=== PATIENT | female | born 2000 | race American Indian/Alaskan Native ===

== ENCOUNTER 2020-11-11 13:38 | Inpatient (IN) | payer OTHER ==
[2020-11-11] MEDS ORDERED: SIMETHICONE 80 MG CHEW TAB PO PRN (13:51)
[2020-11-11] MEDS ORDERED: SODIUM CHLORIDE NASAL SPRAY 44ML NS PRN (13:51)
[2020-11-11] MEDS ORDERED: MAGNESIUM HYDROXIDE (MOM) ORAL LIQD UDC PO PRN (13:51)
[2020-11-11] MEDS ORDERED: ACETAMINOPHEN 325 MG TAB PO PRN (13:51)
[2020-11-11] MEDS ORDERED: diphenhydrAMINE 25 MG CAP PO PRN (13:51)
[2020-11-11] MEDS ORDERED: DOCUSATE SODIUM 100 MG CAP PO PRN (13:51)
[2020-11-11] MEDS ORDERED: SENNOSIDES/DOCUSATE SODIUM 8.6/50 MG TAB PO PRN (13:51)
[2020-11-11] MEDS ORDERED: ALUM-MAG HYDROXIDE-SIMETHICONE 200-200-20MG/5ML ORAL LIQD 30 ML PO PRN (13:51)
--- NOTE | 2020-11-11 13:54 | History and Physical Report ---
History of Present Illness Date of examination: 11/11/20 Chief complaint: Sent from [facility] for r/o pre-e; pre-e labs and 24hr urine. History of present illness: EDC Calculations by LMP: 12/31/2020 Past History : 4 Term Births: 0 Premature Births: 0 Living Children: 0 Para: 0 Mult. Births: 0 Prev : 0 Aborta: 3 Elect. Ab: 0 Spont. Ab: 2 Ectopics: 1 # 1 Delivery date: 2015 Weeks Gestation: 5 Delivery type: SAB Comments: No D&C # 2 Delivery date: 2016 Delivery type: SAB Comments: No D&C # 3 Delivery date: 10/2019 Delivery type: ectopic Delivery location: [facility] Comments: Lsc Left salpingectomy Past Medical History: Asthma Past Surgical History: Tonsillectomy Lsc Left salpingectomy Family History Summary: Other Family Member - Has No Family History of Ovarvian Cancer - Entered On: 08/01/2020 Other Family Member - Has No Family History of Breast Cancer - Entered On: 08/01/2020 Other Family Member - Has Family History Colon Cancer - Entered On: 08/01/2020 Social History: Marital Status: Single Children: 0 Occupation: Unemployed Smoking History: Patient is a former smoker. Risk Factors Year quit smokin02/2020 Passive smoke exposure: no Drug use: yes HIV high risk behavior: no Caffeine use (drinks/day): <1 Seatbelt use: 100 % Past Medical History Surgery (Non-physician gynecologist): Tonsillectomy Lsc Left salpingectomy Abnormal PAP: negative Uterine Anomaly: negative Social Hx: Marital Status: Single Children: 0 Occupation: Unemployed Smoking History: Patient is a former smoker. Infection History Hx of STD: none HIV Risk Eval: no Hepatitis B Risk Eval: low risk Partner hx. of genital herpes: no Genetic History Congenital Heart Defect: Mom: no Dad: no Juju Disease: Mom: no Dad: no Thalassemia Mom: no Dad: no Neural Tube Defect Mom: no Dad: no Down's Syndrome Mom: no Dad: no Luis-Sachs Mom: no Dad: no Sickle Cell Disease/Trait Mom: no Dad: no Hemophilia Mom: no Dad: no Muscular Dystrophy Mom: no Dad: no Cystic Fibrosis Mom: no Dad: no Amanda Chorea Mom: no Dad: no Mental Retardation Mom: no Dad: no Fragile X Mom: no Dad: no Other Genetic/Chromosomal Disorder Mom: no Dad: no Child w/other defect Mom: no Dad: no Enviromental Exposures Xray Exposure: no Medication, drug, or alcohol use since LMP: no Chemical/Other Exposure: no Exposure to Cat Liter: no Active Medications (reviewed today): None Current Allergies (reviewed today): No known allergies Past History Past Medical History: other (see HPI) Past Surgical History: other (see HPI) 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) Family/Genetic History: other (see HPI) - Obstetrical History Expected Date of Delivery: 12/31/20 Actual Gestation: 32 Week(s) 6 Day(s) : 4 Para: 0 Hx # Term Pregnancies: 0 Number of Pregnancies: 0 Spontaneous Abortions: 3 Induced : 0 Number of Living Children: 0 Medications and Allergies Allergies Allergy/AdvReac Type Severity Reaction Status Date / Time No Known Allergies Allergy Verified 11/11/20 15:45 Review of Systems All systems: negative - Physical Exam Breasts: Positive: normal Cardiovascular: Regular rate Lungs: Positive: Normal air movement Abdomen: Positive: normal appearance, soft Genitourinary (Female): Positive: normal perenium Vagina: Positive: normal moisture - Obstetrical FHR: auscultation normal Uterine Contraction Monitor Mode: External Uterine Contraction Pattern: Absent Results All other labs normal. Assessment and Plan Pt direct admit per [facility] for R/O Pre-E, b/p 160's/100 in [facility]. complicated by IUGR EFW <1%. [facility] consult ordered. Admission orders in EMR. Reassess PRN - Patient Problems (1) 32 weeks gestation of Current Visit: Yes Status: Acute (2) Elevated blood pressure complicating in third trimester, antepartum Current Visit: Yes Status: Acute Plan to address problem: Baseline Pre-E labs and 24HR urine ordered Will closely monitor vitals signs and I&O (3) IUGR (intrauterine growth restriction) Current Visit: Yes Status: Acute Plan to address problem: Continuous EFM and [employer] Bi-weekly BPP w/doppler flow studies AMFM consult ordered
[2020-11-11] MEDS: BETAMET ACET/BETAMET NA PH 6 MG/ML INJ 5 ML MDV IM SCH (16:52)
[2020-11-11] MEDS: ONDANSETRON 4 MG/2 ML INJ IV PRN (16:59)
[2020-11-11] MEDS ORDERED: hydrALAZINE 20 MG/1 ML INJ IV ONE (17:10)
[2020-11-11 17:17] LABS: Basophils % (Auto) 0.3 % (0.0-1.8); Eosinophils # (Auto) 0.1 K/mm3 (0.0-0.4); Eosinophils % (Auto) 0.7 % (0.0-4.3); Hematocrit 40.3 % (30.3-42.9); Hemoglobin 13.6 gm/dl (10.1-14.3); Lymphocytes # (Auto) 2.7 K/mm3 (1.2-5.4); Mean Corpuscular HGB Conc 34 % (30-34); Mean Corpuscular Volume 93 fl (79-97); Monocytes # (Auto) 0.7 K/mm3 (0.0-0.8); Monocytes % (Auto) 8.1 % (0.0-7.3); Platelet Count 235 K/mm3 (140-440); Red Blood Count 4.34 M/mm3 (3.65-5.03); Red Cell Distribution Width 14.7 % (13.2-15.2)
[2020-11-11 17:22] LABS: Alanine Aminotransferase 10 units/L (7-56); Uric Acid 6.2 mg/dL (3.5-7.6)
--- NOTE | 2020-11-11 22:04 | Event Note ---
Date: 11/11/20 (Incorrect 24 hour urine) Late Entry: Was informed by RN around 8pm that the 24 hour urine was incorrectly sent down too early and has been restarted. Will continue to monitor patient's blood pressures.
--- NOTE | 2020-11-12 09:07 | Progress Note ---
Assessment and Plan Pt lying in bed without complaints. Denies RYDER, vision changes, and pain; reports +FM. POC and precautions reviewed with pt. Pt verbalizes understanding and agrees to plan for continued antepartum admission. - Patient Problems (1) 33 weeks gestation of Current Visit: Yes Status: Acute (2) Elevated blood pressure complicating in third trimester, antepartum Current Visit: Yes Status: Acute Plan to address problem: monitor closely per protocol and notify provider with any SSx of worsening or changes in status PO antihypertensive medication as ordered (3) IUGR (intrauterine growth restriction) Current Visit: Yes Status: Acute Plan to address problem: Continuous EFM and [place] Bi-weekly BPP w/doppler flow studies AMFM consult ordered Subjective - Subjective Date of service: 11/12/20 Principal diagnosis: IUP @33wks, elevated blood pressure Patient reports: movement normal, no new complaints, no loss of fluid, no vaginal bleeding, no contractions Objective - Vital Signs Vital Signs: Vital Signs - 12hr 11/11/20 11/11/20 11/11/20 21:07 21:12 21:17 Temperature Pulse Rate 71 70 72 Respiratory Rate Blood Pressure O2 Sat by Pulse 99 99 99 Oximetry O2 Sat by Pulse Oximetry [ Bilateral] 11/11/20 11/11/20 11/11/20 21:22 21:27 21:33 Temperature Pulse Rate 76 65 92 H Respiratory Rate Blood Pressure O2 Sat by Pulse 100 100 100 Oximetry O2 Sat by Pulse Oximetry [ Bilateral] 11/11/20 11/11/20 11/11/20 21:38 21:42 21:43 Temperature Pulse Rate 80 72 64 Respiratory Rate Blood Pressure 180/93 O2 Sat by Pulse 99 99 Oximetry O2 Sat by Pulse Oximetry [ Bilateral] 11/11/20 11/11/20 11/11/20 21:44 21:48 21:53 Temperature Pulse Rate 57 L 73 70 Respiratory Rate Blood Pressure 180/93 O2 Sat by Pulse 98 99 Oximetry O2 Sat by Pulse Oximetry [ Bilateral] 11/11/20 11/11/20 11/11/20 21:58 22:01 22:03 Temperature Pulse Rate 70 80 75 Respiratory Rate Blood Pressure 137/77 O2 Sat by Pulse 99 99 Oximetry O2 Sat by Pulse Oximetry [ Bilateral] 11/11/20 11/11/20 11/11/20 22:09 22:14 22:16 Temperature Pulse Rate 84 81 76 Respiratory Rate Blood Pressure 143/78 O2 Sat by Pulse 100 98 Oximetry O2 Sat by Pulse Oximetry [ Bilateral] 11/11/20 11/11/20 11/11/20 22:19 22:24 22:29 Temperature Pulse Rate 76 83 70 Respiratory Rate Blood Pressure O2 Sat by Pulse 100 99 98 Oximetry O2 Sat by Pulse Oximetry [ Bilateral] 11/11/20 11/11/20 11/11/20 22:34 22:39 22:44 Temperature Pulse Rate 87 81 73 Respiratory Rate Blood Pressure O2 Sat by Pulse 99 99 99 Oximetry O2 Sat by Pulse Oximetry [ Bilateral] 11/11/20 11/11/20 11/11/20 22:48 22:49 22:53 Temperature Pulse Rate 75 89 74 Respiratory Rate Blood Pressure 124/72 O2 Sat by Pulse 99 99 Oximetry O2 Sat by Pulse Oximetry [ Bilateral] 11/11/20 11/11/20 11/11/20 22:59 23:04 23:09 Temperature Pulse Rate 80 77 88 Respiratory Rate Blood Pressure O2 Sat by Pulse 98 99 99 Oximetry O2 Sat by Pulse Oximetry [ Bilateral] 11/11/20 11/11/20 11/11/20 23:14 23:22 23:27 Temperature Pulse Rate 102 H 83 71 Respiratory Rate Blood Pressure O2 Sat by Pulse 99 99 99 Oximetry O2 Sat by Pulse Oximetry [ Bilateral] 11/11/20 11/11/20 11/11/20 23:32 23:37 23:42 Temperature Pulse Rate 71 79 90 Respiratory Rate Blood Pressure O2 Sat by Pulse 99 99 99 Oximetry O2 Sat by Pulse Oximetry [ Bilateral] 11/11/20 11/11/20 11/11/20 23:44 23:47 23:52 Temperature Pulse Rate 75 90 81 Respiratory Rate Blood Pressure 132/78 O2 Sat by Pulse 99 99 Oximetry O2 Sat by Pulse Oximetry [ Bilateral] 11/11/20 11/12/20 11/12/20 23:57 00:02 00:07 Temperature Pulse Rate 91 H 86 86 Respiratory Rate Blood Pressure O2 Sat by Pulse 99 99 100 Oximetry O2 Sat by Pulse Oximetry [ Bilateral] 11/12/20 11/12/20 11/12/20 00:12 00:15 00:17 Temperature Pulse Rate 88 88 75 Respiratory Rate Blood Pressure 129/76 O2 Sat by Pulse 99 99 Oximetry O2 Sat by Pulse Oximetry [ Bilateral] 11/12/20 11/12/20 11/12/20 00:22 00:27 00:32 Temperature Pulse Rate 81 77 79 Respiratory Rate Blood Pressure O2 Sat by Pulse 99 99 99 Oximetry O2 Sat by Pulse Oximetry [ Bilateral] 11/12/20 11/12/20 11/12/20 00:37 00:42 00:46 Temperature Pulse Rate 77 75 82 Respiratory Rate Blood Pressure 154/89 O2 Sat by Pulse 99 99 Oximetry O2 Sat by Pulse Oximetry [ Bilateral] 11/12/20 11/12/20 11/12/20 00:47 00:50 00:52 Temperature Pulse Rate 75 70 77 Respiratory Rate Blood Pressure 145/85 O2 Sat by Pulse 99 99 Oximetry O2 Sat by Pulse Oximetry [ Bilateral] 11/12/20 11/12/20 11/12/20 00:57 01:02 01:07 Temperature Pulse Rate 85 73 71 Respiratory Rate Blood Pressure O2 Sat by Pulse 99 99 100 Oximetry O2 Sat by Pulse Oximetry [ Bilateral] 11/12/20 11/12/20 11/12/20 01:12 01:15 01:17 Temperature Pulse Rate 74 82 76 Respiratory Rate Blood Pressure 135/75 O2 Sat by Pulse 99 98 Oximetry O2 Sat by Pulse Oximetry [ Bilateral] 11/12/20 11/12/20 11/12/20 01:25 01:26 01:31 Temperature Pulse Rate 62 54 L 92 H Respiratory Rate Blood Pressure O2 Sat by Pulse 88 87 100 Oximetry O2 Sat by Pulse Oximetry [ Bilateral] 11/12/20 11/12/20 11/12/20 01:36 01:41 01:45 Temperature Pulse Rate 90 79 67 Respiratory Rate Blood Pressure 144/89 O2 Sat by Pulse 100 99 Oximetry O2 Sat by Pulse Oximetry [ Bilateral] 11/12/20 11/12/20 11/12/20 01:46 01:51 01:56 Temperature Pulse Rate 61 66 86 Respiratory Rate Blood Pressure O2 Sat by Pulse 100 100 99 Oximetry O2 Sat by Pulse Oximetry [ Bilateral] 11/12/20 11/12/20 11/12/20 02:01 02:06 02:11 Temperature Pulse Rate 79 78 72 Respiratory Rate Blood Pressure O2 Sat by Pulse 99 100 99 Oximetry O2 Sat by Pulse Oximetry [ Bilateral] 11/12/20 11/12/20 11/12/20 02:15 02:16 02:21 Temperature Pulse Rate 68 78 72 Respiratory Rate Blood Pressure 131/82 O2 Sat by Pulse 100 99 Oximetry O2 Sat by Pulse Oximetry [ Bilateral] 11/12/20 11/12/20 11/12/20 02:26 02:31 02:36 Temperature Pulse Rate 71 65 73 Respiratory Rate Blood Pressure O2 Sat by Pulse 99 100 100 Oximetry O2 Sat by Pulse Oximetry [ Bilateral] 11/12/20 11/12/20 11/12/20 02:41 02:45 02:46 Temperature Pulse Rate 75 72 71 Respiratory Rate Blood Pressure 130/80 O2 Sat by Pulse 100 100 Oximetry O2 Sat by Pulse Oximetry [ Bilateral] 11/12/20 11/12/20 11/12/20 02:51 02:56 03:01 Temperature Pulse Rate 70 70 68 Respiratory Rate Blood Pressure O2 Sat by Pulse 99 99 99 Oximetry O2 Sat by Pulse Oximetry [ Bilateral] 11/12/20 11/12/20 11/12/20 03:06 03:12 03:15 Temperature Pulse Rate 87 86 69 Respiratory Rate Blood Pressure 137/90 O2 Sat by Pulse 100 99 Oximetry O2 Sat by Pulse Oximetry [ Bilateral] 11/12/20 11/12/20 11/12/20 03:17 03:22 03:27 Temperature Pulse Rate 65 64 69 Respiratory Rate Blood Pressure O2 Sat by Pulse 100 99 99 Oximetry O2 Sat by Pulse Oximetry [ Bilateral] 11/12/20 11/12/20 11/12/20 03:32 03:37 03:42 Temperature Pulse Rate 68 65 65 Respiratory Rate Blood Pressure O2 Sat by Pulse 98 98 98 Oximetry O2 Sat by Pulse Oximetry [ Bilateral] 11/12/20 11/12/20 11/12/20 03:45 03:46 03:52 Temperature Pulse Rate 62 71 68 Respiratory Rate Blood Pressure 118/61 O2 Sat by Pulse 98 98 Oximetry O2 Sat by Pulse Oximetry [ Bilateral] 11/12/20 11/12/20 11/12/20 03:57 04:02 04:07 Temperature Pulse Rate 69 68 70 Respiratory Rate Blood Pressure O2 Sat by Pulse 98 98 98 Oximetry O2 Sat by Pulse Oximetry [ Bilateral] 11/12/20 11/12/20 11/12/20 04:12 04:15 04:17 Temperature Pulse Rate 68 88 65 Respiratory Rate Blood Pressure 139/77 O2 Sat by Pulse 98 99 Oximetry O2 Sat by Pulse Oximetry [ Bilateral] 11/12/20 11/12/20 11/12/20 04:22 04:27 04:32 Temperature Pulse Rate 68 69 79 Respiratory Rate Blood Pressure O2 Sat by Pulse 98 99 97 Oximetry O2 Sat by Pulse Oximetry [ Bilateral] 11/12/20 11/12/20 11/12/20 04:37 04:42 04:45 Temperature Pulse Rate 80 71 75 Respiratory Rate Blood Pressure 139/82 O2 Sat by Pulse 98 98 Oximetry O2 Sat by Pulse Oximetry [ Bilateral] 11/12/20 11/12/20 11/12/20 04:47 04:52 04:57 Temperature Pulse Rate 68 70 77 Respiratory Rate Blood Pressure O2 Sat by Pulse 98 98 99 Oximetry O2 Sat by Pulse Oximetry [ Bilateral] 11/12/20 11/12/20 11/12/20 05:02 05:07 05:12 Temperature Pulse Rate 91 H 65 69 Respiratory Rate Blood Pressure O2 Sat by Pulse 99 99 98 Oximetry O2 Sat by Pulse Oximetry [ Bilateral] 11/12/20 11/12/20 11/12/20 05:15 05:17 05:22 Temperature Pulse Rate 93 H 69 73 Respiratory Rate Blood Pressure 124/65 O2 Sat by Pulse 99 98 Oximetry O2 Sat by Pulse Oximetry [ Bilateral] 11/12/20 11/12/20 11/12/20 05:27 05:32 05:37 Temperature Pulse Rate 78 69 71 Respiratory Rate Blood Pressure O2 Sat by Pulse 98 98 98 Oximetry O2 Sat by Pulse Oximetry [ Bilateral] 11/12/20 11/12/20 11/12/20 05:42 05:45 05:47 Temperature Pulse Rate 72 76 64 Respiratory Rate Blood Pressure 159/83 O2 Sat by Pulse 99 99 Oximetry O2 Sat by Pulse Oximetry [ Bilateral] 11/12/20 11/12/20 11/12/20 05:52 05:57 06:01 Temperature Pulse Rate 70 78 91 H Respiratory Rate Blood Pressure 138/75 O2 Sat by Pulse 98 98 Oximetry O2 Sat by Pulse Oximetry [ Bilateral] 11/12/20 11/12/20 11/12/20 06:02 06:07 06:12 Temperature Pulse Rate 77 74 76 Respiratory Rate Blood Pressure O2 Sat by Pulse 99 98 98 Oximetry O2 Sat by Pulse Oximetry [ Bilateral] 1011/12/20 11/12/20 06:15 06:17 06:22 Temperature Pulse Rate 92 H 78 81 Respiratory Rate Blood Pressure 158/83 O2 Sat by Pulse 99 98 Oximetry O2 Sat by Pulse Oximetry [ Bilateral] 11/12/20 11/12/20 11/12/20 06:27 06:30 06:32 Temperature Pulse Rate 80 78 73 Respiratory Rate Blood Pressure 135/75 O2 Sat by Pulse 98 99 Oximetry O2 Sat by Pulse Oximetry [ Bilateral] 11/12/20 11/12/20 11/12/20 06:37 06:42 06:45 Temperature Pulse Rate 79 78 76 Respiratory Rate Blood Pressure 135/69 O2 Sat by Pulse 98 98 Oximetry O2 Sat by Pulse Oximetry [ Bilateral] 11/12/20 11/12/20 11/12/20 06:47 06:52 06:57 Temperature Pulse Rate 74 75 82 Respiratory Rate Blood Pressure O2 Sat by Pulse 98 98 98 Oximetry O2 Sat by Pulse Oximetry [ Bilateral] 11/12/20 11/12/20 11/12/20 07:02 07:07 07:12 Temperature Pulse Rate 74 79 72 Respiratory Rate Blood Pressure O2 Sat by Pulse 98 98 98 Oximetry O2 Sat by Pulse Oximetry [ Bilateral] 11/12/20 11/12/20 11/12/20 07:15 07:17 07:22 Temperature Pulse Rate 74 71 70 Respiratory Rate Blood Pressure 155/72 O2 Sat by Pulse 99 99 Oximetry O2 Sat by Pulse Oximetry [ Bilateral] 11/12/20 11/12/20 11/12/20 07:27 07:32 07:37 Temperature Pulse Rate 73 73 86 Respiratory Rate Blood Pressure O2 Sat by Pulse 99 99 98 Oximetry O2 Sat by Pulse Oximetry [ Bilateral] 11/12/20 11/12/20 11/12/20 07:40 07:42 07:45 Temperature Pulse Rate 96 H 90 75 Respiratory Rate Blood Pressure 136/81 120/71 O2 Sat by Pulse 100 Oximetry O2 Sat by Pulse 99 Oximetry [ Bilateral] 11/12/20 11/12/20 11/12/20 07:47 07:52 07:56 Temperature 97.8 F Pulse Rate 84 85 Respiratory 18 Rate Blood Pressure O2 Sat by Pulse 100 99 99 Oximetry O2 Sat by Pulse Oximetry [ Bilateral] 11/12/20 11/12/20 11/12/20 07:57 08:02 08:07 Temperature Pulse Rate 72 82 81 Respiratory Rate Blood Pressure O2 Sat by Pulse 99 99 99 Oximetry O2 Sat by Pulse Oximetry [ Bilateral] 11/12/20 11/12/20 11/12/20 08:12 08:19 08:20 Temperature Pulse Rate 86 83 84 Respiratory Rate Blood Pressure O2 Sat by Pulse 99 93 92 Oximetry O2 Sat by Pulse Oximetry [ Bilateral] 11/12/20 11/12/20 11/12/20 08:25 08:30 08:35 Temperature Pulse Rate 80 73 69 Respiratory Rate Blood Pressure O2 Sat by Pulse 100 99 99 Oximetry O2 Sat by Pulse Oximetry [ Bilateral] 11/12/20 11/12/20 11/12/20 08:40 08:45 08:50 Temperature Pulse Rate 74 70 99 H Respiratory Rate Blood Pressure 119/64 O2 Sat by Pulse 99 98 98 Oximetry O2 Sat by Pulse Oximetry [ Bilateral] 11/12/20 11/12/20 11/12/20 08:55 09:00 09:05 Temperature Pulse Rate 72 76 66 Respiratory Rate Blood Pressure O2 Sat by Pulse 100 99 99 Oximetry O2 Sat by Pulse Oximetry [ Bilateral] - Exam Breasts: deferred Cardiovascular: Regular rate Lungs: Normal air movement Abdomen: Present: normal appearance, soft. Absent: distention, tenderness, guarding, rigidity Vulva: both: normal Uterus: Present: normal, other (gravid). Absent: bogginess, tenderness FHR: auscultation normal, category 1 Uterine Contraction Monitor Mode: External Uterine Contraction Pattern: Absent Uterine Tone Measurement Phase: Resting Extremities: normal - Labs Labs: Abnormal Labs 11/11/20 11/11/20 16:30 17:56 [place] % (Auto) 8.1 H Urine Total Protein 128 H Laboratory Results - last 24 hr 11/11/20 11/11/20 11/11/20 16:30 16:30 16:30 WBC 9.2 RBC 4.34 Hgb 13.6 Hct 40.3 MCV 93 MCH 31 MCHC 34 RDW 14.7 Plt Count 235 Lymph % (Auto) 29.0 [place] % (Auto) 8.1 H Eos % (Auto) 0.7 Baso % (Auto) 0.3 Lymph # (Auto) 2.7 [place] # (Auto) 0.7 Eos # (Auto) 0.1 Baso # (Auto) 0.0 Seg Neutrophils % 61.9 Seg Neutrophils # 5.7 Creatinine 0.7 Estimated GFR > 60 Uric Acid 6.2 AST 20 ALT 10 Urine Total Volume Ur Total Protein 24 Hr Urine Total Protein Blood Type O POSITIVE Antibody Screen Negative 11/11/20 17:56 WBC RBC Hgb Hct MCV MCH MCHC RDW Plt Count Lymph % (Auto) [place] % (Auto) Eos % (Auto) Baso % (Auto) Lymph # (Auto) [place] # (Auto) Eos # (Auto) Baso # (Auto) Seg Neutrophils % Seg Neutrophils # Creatinine Estimated GFR Uric Acid AST ALT Urine Total Volume 10 Ur Total Protein 24 Hr 12.80 Urine Total Protein 128 H Blood Type Antibody Screen
[2020-11-12] MEDS: PRENATAL VIT27-FE FUMARATE-FOLIC ACID VIT TAB PO SCH (10:32)
--- NOTE | 2020-11-12 12:24 | Consultation ---
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) Family/Genetic History: other (see HPI) - Obstetrical History : 4 Medications and Allergies Allergies Allergy/AdvReac Type Severity Reaction Status Date / Time No Known Allergies Allergy Verified 11/11/20 15:45 Home Medications Medication Instructions Recorded Confirmed Last Taken Type No Known Home Medications [No 11/12/20 11/12/20 Unknown History Reported Home Medications] Active Meds: Active Medications Acetaminophen (Acetaminophen 325 Mg Tab) 650 mg PO Q6H PRN PRN Reason: Pain MILD(1-3)/Fever >100.5/RYDER Al Hydrox/Mg Hydrox/Simethicone (Alum-Mag Hydroxide-Simethicone [phone]/5ml Oral Liqd 30 Ml) 30 ml PO Q6H PRN PRN Reason: Indigestion Diphenhydramine HCl (Diphenhydramine 25 Mg Cap) 25 mg PO Q6H PRN PRN Reason: Itching Docusate Sodium (Docusate Sodium 100 Mg Cap) 100 mg PO Q12H PRN PRN Reason: Constipation Labetalol HCl (Labetalol 200 Mg Tab) 200 mg PO BID [facility] Last Admin: 11/12/20 10:32 Dose: 200 mg Documented by: Magnesium Hydroxide (Magnesium Hydroxide (Mom) Oral Liqd Udc) 30 ml PO QHS PRN PRN Reason: Laxative Effect Multivitamins/Iron/Calcium ( [id number]-[id number] Fumarate-Folic Acid Vit Tab) 1 each PO QDAY [facility] Last Admin: 11/12/20 10:32 Dose: 1 each Documented by: Ondansetron HCl (Ondansetron 4 Mg/2 Ml Inj) 4 mg IV Q6H PRN PRN Reason: Nausea And Vomiting Last Admin: 11/11/20 16:59 Dose: 4 mg Documented by: Senna/Docusate Sodium (Sennosides/Docusate Sodium 8.6/50 Mg Tab) 2 tab PO Q12H PRN PRN Reason: Laxative Effect Simethicone (Simethicone 80 Mg Chew Tab) 80 mg PO Q6H PRN PRN Reason: Gas pain Sodium Chloride (Sodium Chloride 0.9% 10 Ml Flush Syringe) 10 ml IV PRN PRN PRN Reason: LINE FLUSH Sodium Chloride (Sodium Chloride Nasal [place] 44ml) 2 spray NS Q4H PRN PRN Reason: Congestion - Vital Signs Vital signs: Vital Signs Pulse Ox 100 11/11/20 15:06 Temp Pulse Resp BP Pulse Ox 97.8 F 85 18 114/69 98 11/12/20 07:56 11/12/20 12:15 11/12/20 07:56 11/12/20 12:15 11/12/20 12:15 Results Result Diagrams: 11/11/20 16:30 11/11/20 16:30 Abnormal lab results 11/11/20 11/11/20 Range/Units 16:30 17:56 [place] % (Auto) 8.1 H (0.0-7.3) % Urine Total Protein 128 H (5-11.8) mg/dL All other labs normal. Assessment and Plan AMFM Pt seen Full consult will be faxed to the unit A; 1. IUP at 33 0/7 weeks gestation 2. Gestational HTN rule out preeclampsia 3. IUGR [facility] 11/11/2020 EFW 2lb 9 oz ( 1166gm) <1%, ABIODUN 11.4cm BPP 8/8 , elevated S/D ratio Rec; 1. Continue to monitor for worsening HTN Continue Labetalol at current dose , titrate to maintain BP 120-160/80-105mmhg IV Hydralazine prn severe range BP 2. Complete course of BMZ Role of the steroids in the reduction of RDS, NEC,and and IVH was reviewed 3. 24 hr TP is pending completion 4. BPP Dopplers should be performed q 2-3 days while admitted Growth scan q 2 weeks 5. Delivery is generally recommended at 34 0/7 - 37 0/7 weeks gestation in the setting of maternal HTN and IUGR Further recommendations regarding duration of her hospitalization and GA for delivery will be made based on the results of the 24 hr TP , maternal / wellbeing Plan of care was reviewed with the patient and all questions were answered
[2020-11-12] MEDS: ACETAMINOPHEN 325 MG TAB PO PRN (14:55)
[2020-11-12] MEDS ORDERED: BETAMET ACET/BETAMET NA PH 6 MG/ML INJ 5 ML MDV IM ONE (17:21)
[2020-11-12] MEDS: BETAMET ACET/BETAMET NA PH 6 MG/ML INJ 5 ML MDV IM SCH (17:27)
[2020-11-12 20:53] LABS: Creatinine 24 Hour,Urine 0.9 (0.8-2.8); Creatinine,Urine 89.1 mg/dL (0.1-20.0)
--- NOTE | 2020-11-13 07:07 | Event Note ---
Date: 11/13/20 Late entry: Patient BP and labs reviewed. Noted to have normal to mild range blood pressures. 24 hr urine protein noted to be 1480 mg/dl. Patient now meets criteria for Preeclampsia without severe features. Based on IUGR and PreE, indicated delivery at 34 weeks, unless diagnosis progresses to PreE with severe features or other obstetrical complication. BPP with Dopplers ordered per MFM recs. Will consult with [facility] to discuss further management.
[2020-11-13] MEDS: ONDANSETRON 4 MG/2 ML INJ IV PRN (07:34)
--- NOTE | 2020-11-13 07:48 | Progress Note ---
Assessment and Plan Pt in bed without complaints this am. Denies RYDER, vision changes, pain, LOF, VB, and edema. POC d/w pt. Questions encouraged and answered. Pt verbalizes understanding and agrees to POC. Dr. Burger aware. - Patient Problems (1) 33 weeks gestation of Current Visit: Yes Status: Acute Plan to address problem: BMZ completed x2 doses (2) IUGR (intrauterine growth restriction) Current Visit: Yes Status: Acute Plan to address problem: Continuous EFM and [place] Bi-weekly BPP w/doppler flow studies, ordered to be performed today AMFM consult done NICU consult ordered Del. @34wks recommended per AMFM Dr. Fisher, unless otherwise indicated (3) Hypertension in , pre-eclampsia, severe, antepartum Current Visit: Yes Status: Acute Plan to address problem: monitor for SSx of worsening notify provider with any changes in status strict I&O PO antihypertensives IV Hydralazine prn to be ordered for severe range BP (4) COVID-19 Current Visit: Yes Status: Acute Plan to address problem: isolation and precautions per protocol Subjective - Subjective Date of service: 11/13/20 Principal diagnosis: IUP @33.1wks, PreE with severe features, COVID+ Patient reports: movement normal, no new complaints, no loss of fluid, no vaginal bleeding, no contractions Objective - Vital Signs Vital Signs: Vital Signs - 12hr 11/12/20 11/12/20 11/12/20 19:52 19:54 19:57 Temperature 98.3 F Pulse Rate 102 H 90 Respiratory Rate Blood Pressure O2 Sat by Pulse 92 97 Oximetry O2 Sat by Pulse 99 Oximetry [ Bilateral] 11/12/20 11/12/20 11/12/20 20:02 20:07 20:12 Temperature Pulse Rate 90 89 85 Respiratory Rate Blood Pressure O2 Sat by Pulse 98 97 98 Oximetry O2 Sat by Pulse Oximetry [ Bilateral] 11/12/20 11/12/20 11/12/20 20:17 20:18 20:23 Temperature Pulse Rate 106 H 63 72 Respiratory Rate Blood Pressure O2 Sat by Pulse 86 98 99 Oximetry O2 Sat by Pulse Oximetry [ Bilateral] 11/12/20 11/12/20 11/12/20 20:28 20:33 20:38 Temperature Pulse Rate 69 80 86 Respiratory Rate Blood Pressure O2 Sat by Pulse 99 98 98 Oximetry O2 Sat by Pulse Oximetry [ Bilateral] 11/12/20 11/12/20 11/12/20 20:43 20:48 20:53 Temperature Pulse Rate 86 110 H 97 H Respiratory Rate Blood Pressure O2 Sat by Pulse 98 99 100 Oximetry O2 Sat by Pulse Oximetry [ Bilateral] 11/12/20 11/12/20 11/12/20 20:58 21:03 21:08 Temperature Pulse Rate 69 74 82 Respiratory Rate Blood Pressure O2 Sat by Pulse 99 99 92 Oximetry O2 Sat by Pulse Oximetry [ Bilateral] 11/12/20 11/12/20 11/12/20 21:13 21:15 21:18 Temperature Pulse Rate 78 68 85 Respiratory Rate Blood Pressure 142/88 O2 Sat by Pulse 99 99 Oximetry O2 Sat by Pulse Oximetry [ Bilateral] 11/12/20 11/12/20 11/12/20 21:23 21:28 21:33 Temperature Pulse Rate 76 83 91 H Respiratory Rate Blood Pressure O2 Sat by Pulse 99 98 97 Oximetry O2 Sat by Pulse Oximetry [ Bilateral] 11/12/20 11/12/20 11/12/20 21:38 21:43 21:45 Temperature Pulse Rate 67 77 71 Respiratory Rate Blood Pressure 129/84 O2 Sat by Pulse 99 98 Oximetry O2 Sat by Pulse Oximetry [ Bilateral] 11/12/20 11/12/20 11/12/20 21:48 21:53 21:58 Temperature Pulse Rate 78 81 90 Respiratory Rate Blood Pressure O2 Sat by Pulse 99 98 98 Oximetry O2 Sat by Pulse Oximetry [ Bilateral] 11/12/20 11/12/20 11/12/20 22:03 22:08 22:13 Temperature Pulse Rate 87 78 90 Respiratory Rate Blood Pressure O2 Sat by Pulse 99 99 100 Oximetry O2 Sat by Pulse Oximetry [ Bilateral] 11/12/20 11/12/20 11/12/20 22:15 22:17 22:18 Temperature Pulse Rate 86 64 93 H Respiratory Rate Blood Pressure 173/103 164/95 O2 Sat by Pulse 100 Oximetry O2 Sat by Pulse Oximetry [ Bilateral] 11/12/20 11/12/20 11/12/20 22:20 22:23 22:28 Temperature Pulse Rate 95 H 85 81 Respiratory Rate Blood Pressure 156/98 O2 Sat by Pulse 100 99 Oximetry O2 Sat by Pulse Oximetry [ Bilateral] 1011/12/20 11/12/20 22:30 22:33 22:38 Temperature Pulse Rate 72 103 H 88 Respiratory Rate Blood Pressure 158/99 O2 Sat by Pulse 100 98 Oximetry O2 Sat by Pulse Oximetry [ Bilateral] 11/12/20 11/12/20 11/12/20 22:43 22:45 22:48 Temperature Pulse Rate 83 75 102 H Respiratory Rate Blood Pressure 155/88 O2 Sat by Pulse 98 99 Oximetry O2 Sat by Pulse Oximetry [ Bilateral] 11/12/20 11/12/20 11/12/20 22:53 22:58 23:03 Temperature Pulse Rate 83 83 86 Respiratory Rate Blood Pressure O2 Sat by Pulse 99 99 99 Oximetry O2 Sat by Pulse Oximetry [ Bilateral] 11/12/20 11/12/20 11/12/20 23:08 23:13 23:15 Temperature Pulse Rate 90 92 H 90 Respiratory Rate Blood Pressure 138/74 O2 Sat by Pulse 99 99 Oximetry O2 Sat by Pulse Oximetry [ Bilateral] 11/12/20 11/12/20 11/12/20 23:18 23:23 23:28 Temperature Pulse Rate 87 86 86 Respiratory Rate Blood Pressure O2 Sat by Pulse 99 99 99 Oximetry O2 Sat by Pulse Oximetry [ Bilateral] 11/12/20 11/12/20 11/12/20 23:33 23:38 23:43 Temperature Pulse Rate 92 H 93 H 85 Respiratory Rate Blood Pressure O2 Sat by Pulse 99 98 98 Oximetry O2 Sat by Pulse Oximetry [ Bilateral] 11/12/20 11/12/20 11/12/20 23:45 23:48 23:53 Temperature Pulse Rate 88 77 68 Respiratory Rate Blood Pressure 131/68 O2 Sat by Pulse 98 98 Oximetry O2 Sat by Pulse Oximetry [ Bilateral] 11/12/20 11/13/20 11/13/20 23:58 00:03 00:08 Temperature Pulse Rate 76 79 79 Respiratory Rate Blood Pressure O2 Sat by Pulse 98 98 98 Oximetry O2 Sat by Pulse Oximetry [ Bilateral] 11/13/20 11/13/20 11/13/20 00:13 00:15 00:18 Temperature Pulse Rate 85 75 81 Respiratory Rate Blood Pressure 117/58 O2 Sat by Pulse 98 98 Oximetry O2 Sat by Pulse Oximetry [ Bilateral] 11/13/20 11/13/20 11/13/20 00:23 00:28 00:33 Temperature Pulse Rate 113 H 87 81 Respiratory Rate Blood Pressure O2 Sat by Pulse 99 98 98 Oximetry O2 Sat by Pulse Oximetry [ Bilateral] 11/13/20 11/13/20 11/13/20 00:38 00:43 00:45 Temperature Pulse Rate 82 83 95 H Respiratory Rate Blood Pressure 129/67 O2 Sat by Pulse 98 98 Oximetry O2 Sat by Pulse Oximetry [ Bilateral] 11/13/20 11/13/20 11/13/20 00:48 00:53 00:58 Temperature Pulse Rate 90 87 83 Respiratory Rate Blood Pressure O2 Sat by Pulse 97 98 98 Oximetry O2 Sat by Pulse Oximetry [ Bilateral] 11/13/20 11/13/20 11/13/20 01:03 01:08 01:13 Temperature Pulse Rate 90 87 78 Respiratory Rate Blood Pressure O2 Sat by Pulse 98 98 98 Oximetry O2 Sat by Pulse Oximetry [ Bilateral] 11/13/20 11/13/20 11/13/20 01:15 01:18 01:23 Temperature Pulse Rate 86 77 78 Respiratory Rate Blood Pressure 117/61 O2 Sat by Pulse 98 98 Oximetry O2 Sat by Pulse Oximetry [ Bilateral] 11/13/20 11/13/20 11/13/20 01:28 01:33 01:38 Temperature Pulse Rate 77 83 110 H Respiratory Rate Blood Pressure O2 Sat by Pulse 98 98 99 Oximetry O2 Sat by Pulse Oximetry [ Bilateral] 11/13/20 11/13/20 11/13/20 01:43 01:45 01:48 Temperature Pulse Rate 82 75 77 Respiratory Rate Blood Pressure 106/63 O2 Sat by Pulse 98 98 Oximetry O2 Sat by Pulse Oximetry [ Bilateral] 11/13/20 11/13/20 11/13/20 01:53 01:58 02:03 Temperature Pulse Rate 71 79 86 Respiratory Rate Blood Pressure O2 Sat by Pulse 98 99 99 Oximetry O2 Sat by Pulse Oximetry [ Bilateral] 11/13/20 11/13/20 11/13/20 02:08 02:13 02:15 Temperature Pulse Rate 82 81 78 Respiratory Rate Blood Pressure 116/57 O2 Sat by Pulse 98 99 Oximetry O2 Sat by Pulse Oximetry [ Bilateral] 11/13/20 11/13/20 11/13/20 02:18 02:23 02:28 Temperature Pulse Rate 79 75 93 H Respiratory Rate Blood Pressure O2 Sat by Pulse 99 98 99 Oximetry O2 Sat by Pulse Oximetry [ Bilateral] 11/13/20 11/13/20 11/13/20 02:33 02:38 02:43 Temperature Pulse Rate 70 72 77 Respiratory Rate Blood Pressure O2 Sat by Pulse 98 98 98 Oximetry O2 Sat by Pulse Oximetry [ Bilateral] 11/13/20 11/13/20 11/13/20 02:45 02:48 02:53 Temperature Pulse Rate 71 82 77 Respiratory Rate Blood Pressure 126/63 O2 Sat by Pulse 98 98 Oximetry O2 Sat by Pulse Oximetry [ Bilateral] 11/13/20 11/13/20 11/13/20 02:58 03:03 03:08 Temperature Pulse Rate 83 88 91 H Respiratory Rate Blood Pressure O2 Sat by Pulse 99 98 98 Oximetry O2 Sat by Pulse Oximetry [ Bilateral] 11/13/20 11/13/20 11/13/20 03:13 03:15 03:18 Temperature Pulse Rate 66 68 84 Respiratory Rate Blood Pressure 124/57 O2 Sat by Pulse 99 98 Oximetry O2 Sat by Pulse Oximetry [ Bilateral] 11/13/20 11/13/20 11/13/20 03:23 03:28 03:33 Temperature Pulse Rate 78 85 83 Respiratory Rate Blood Pressure O2 Sat by Pulse 98 98 98 Oximetry O2 Sat by Pulse Oximetry [ Bilateral] 11/13/20 11/13/20 11/13/20 03:38 03:43 03:45 Temperature Pulse Rate 73 110 H 79 Respiratory Rate Blood Pressure 136/70 O2 Sat by Pulse 98 97 Oximetry O2 Sat by Pulse Oximetry [ Bilateral] 11/13/20 11/13/20 11/13/20 03:48 03:53 03:58 Temperature Pulse Rate 94 H 70 74 Respiratory Rate Blood Pressure O2 Sat by Pulse 99 99 99 Oximetry O2 Sat by Pulse Oximetry [ Bilateral] 11/13/20 11/13/20 11/13/20 04:03 04:08 04:13 Temperature Pulse Rate 73 68 75 Respiratory Rate Blood Pressure O2 Sat by Pulse 100 98 99 Oximetry O2 Sat by Pulse Oximetry [ Bilateral] 11/13/20 11/13/20 11/13/20 04:15 04:18 04:31 Temperature Pulse Rate 75 80 57 L Respiratory Rate Blood Pressure 123/63 O2 Sat by Pulse 98 97 Oximetry O2 Sat by Pulse Oximetry [ Bilateral] 11/13/20 11/13/20 11/13/20 04:36 04:41 04:45 Temperature Pulse Rate 99 H 76 67 Respiratory Rate Blood Pressure 130/81 O2 Sat by Pulse 100 100 Oximetry O2 Sat by Pulse Oximetry [ Bilateral] 11/13/20 11/13/20 11/13/20 04:46 04:51 04:56 Temperature Pulse Rate 67 76 83 Respiratory Rate Blood Pressure O2 Sat by Pulse 100 100 100 Oximetry O2 Sat by Pulse Oximetry [ Bilateral] 11/13/20 11/13/20 11/13/20 05:01 05:06 05:11 Temperature Pulse Rate 83 96 H 86 Respiratory Rate Blood Pressure O2 Sat by Pulse 100 100 99 Oximetry O2 Sat by Pulse Oximetry [ Bilateral] 11/13/20 11/13/20 11/13/20 05:15 05:16 05:21 Temperature Pulse Rate 73 87 88 Respiratory Rate Blood Pressure 130/82 O2 Sat by Pulse 100 99 Oximetry O2 Sat by Pulse Oximetry [ Bilateral] 11/13/20 11/13/20 11/13/20 05:26 05:31 05:36 Temperature Pulse Rate 78 78 96 H Respiratory Rate Blood Pressure O2 Sat by Pulse 99 99 99 Oximetry O2 Sat by Pulse Oximetry [ Bilateral] 11/13/20 11/13/20 11/13/20 05:41 05:45 05:46 Temperature Pulse Rate 87 85 86 Respiratory Rate Blood Pressure 138/84 O2 Sat by Pulse 99 99 Oximetry O2 Sat by Pulse Oximetry [ Bilateral] 11/13/20 11/13/20 11/13/20 05:51 05:56 05:59 Temperature 98.5 F Pulse Rate 98 H 88 83 Respiratory 32 H Rate Blood Pressure O2 Sat by Pulse 98 99 99 Oximetry O2 Sat by Pulse Oximetry [ Bilateral] 11/13/20 11/13/20 11/13/20 06:01 06:06 06:11 Temperature Pulse Rate 84 89 90 Respiratory Rate Blood Pressure O2 Sat by Pulse 99 98 99 Oximetry O2 Sat by Pulse Oximetry [ Bilateral] 11/13/20 11/13/20 11/13/20 06:15 06:16 06:21 Temperature Pulse Rate 68 93 H 92 H Respiratory Rate Blood Pressure 175/94 O2 Sat by Pulse 92 100 Oximetry O2 Sat by Pulse Oximetry [ Bilateral] 11/13/20 11/13/20 11/13/20 06:22 06:30 06:31 Temperature Pulse Rate 107 H 100 H Respiratory Rate Blood Pressure O2 Sat by Pulse 91 85 99 Oximetry O2 Sat by Pulse Oximetry [ Bilateral] 11/13/20 11/13/20 11/13/20 06:36 06:41 06:46 Temperature Pulse Rate 67 94 H 83 Respiratory Rate Blood Pressure 137/80 O2 Sat by Pulse 100 98 98 Oximetry O2 Sat by Pulse Oximetry [ Bilateral] 11/13/20 11/13/20 11/13/20 06:51 06:56 07:01 Temperature Pulse Rate 81 75 71 Respiratory Rate Blood Pressure O2 Sat by Pulse 99 99 99 Oximetry O2 Sat by Pulse Oximetry [ Bilateral] 11/13/20 11/13/20 11/13/20 07:06 07:11 07:15 Temperature Pulse Rate 78 78 72 Respiratory Rate Blood Pressure 150/91 O2 Sat by Pulse 99 99 Oximetry O2 Sat by Pulse Oximetry [ Bilateral] 11/13/20 11/13/20 11/13/20 07:16 07:17 07:18 Temperature 98.6 F Pulse Rate 75 75 Respiratory 14 Rate Blood Pressure 143/82 O2 Sat by Pulse 100 100 Oximetry O2 Sat by Pulse Oximetry [ Bilateral] 11/13/20 11/13/20 11/13/20 07:20 07:21 07:26 Temperature Pulse Rate 93 H 80 Respiratory Rate Blood Pressure O2 Sat by Pulse 99 99 Oximetry O2 Sat by Pulse 100 Oximetry [ Bilateral] 11/13/20 11/13/20 11/13/20 07:31 07:36 07:41 Temperature Pulse Rate 80 79 84 Respiratory Rate Blood Pressure O2 Sat by Pulse 99 99 99 Oximetry O2 Sat by Pulse Oximetry [ Bilateral] 11/13/20 11/13/20 07:45 07:46 Temperature Pulse Rate 75 75 Respiratory Rate Blood Pressure 145/73 O2 Sat by Pulse 98 Oximetry O2 Sat by Pulse Oximetry [ Bilateral] - Exam Cardiovascular: Regular rate Lungs: Normal air movement Abdomen: Present: normal appearance, soft, other (gravid) Uterus: Present: normal. Absent: tenderness FHR: auscultation normal, other (appropriate for gestational age) Uterine Contraction Monitor Mode: External Uterine Contraction Pattern: Absent Uterine Tone Measurement Phase: Resting Extremities: normal - Labs Labs: Abnormal Labs 11/11/20 11/11/20 11/12/20 16:30 17:56 19:15 [place] % (Auto) 8.1 H Urine Creatinine 89.1 H Ur Total Protein 24 Hr 1480.00 H Urine Total Protein 128 H 148 H Coronavirus (PCR) 11/12/20 Unknown [place] % (Auto) Urine Creatinine Ur Total Protein 24 Hr Urine Total Protein Coronavirus (PCR) Positive A Laboratory Results - last 24 hr 11/12/20 11/12/20 19:15 Unknown Urine Total Volume 1000 Urine Creatinine 89.1 H Ur Creatinine 24 Hour 0.9 Ur Total Protein 24 Hr 1480.00 H Urine Total Protein 148 H Coronavirus (PCR) Positive A
[2020-11-13] MEDS ORDERED: metroNIDAZOLE 500 MG TAB PO SCH (09:00)
[2020-11-13] MEDS: PRENATAL VIT27-FE FUMARATE-FOLIC ACID VIT TAB PO SCH (10:59)
--- NOTE | 2020-11-13 14:35 | Consultation ---
Consult Note - Parent Education I met with parent(s) and discussed the following:: Need for NICU admission, Poss ible need for intubation and surfactant or other resp support, Temperature regulation, Head ultrasounds to evaluate IVH, Possible need for IV fluids/TPN and IV antibiotics, Possible need for umbilical lines, Importance of providing breast milk & encouraged pumping aft delivery, Slow feeding advancement and monitoring of tolerance. NG/OG feeds, Need to monitor for jaundice, Data for survival & survival without significant co-morbidities Parent(s) demonstrated understanding of all the information:: Yes Additional Comment: Spoke to 20 yo COVID + Mom with EDC of 12/31-EGA of 33.1 wks. EFW of 1166 g on 11/11. Diagnosed with pre-eclampsia with severe features and IUGR. Delivery recommended at 34 wks. Completed BMZ x 2. Last U/s 11/13 with BPP of 09/18. Discussed typical course of SGA infants at length and Mom voiced understanding. Assessment and Plan - Assessment Gestation:: 33.1 Estimated Weight: 1166 g Baby's gender: Female - Plan Plan: Will attend delivery. Please call NICU with additional questions/concerns.
[2020-11-13] MEDS: hydrALAZINE 20 MG/1 ML INJ IV PRN ×2 (15:29→20:23)
--- NOTE | 2020-11-13 20:15 | Event Note ---
Date: 11/13/20 @1949 Call received from RN re: pt severe range BP. Order given for Hydralazine IV now. Call back received from RN with BP now 159/96 and pt c/o headache. Order given to hold hydralazine and give prn x1 dose for BP >160 systolic or >105 diastolic then call provider. Dr. Burger consulted and made aware. Orders placed in EMR. Plan for to proceed with delivery per Dr. Fisher and Dr. Burger. Monitor pt closely and notify provider with any changes in status. Continuous EFM and [place]
--- NOTE | 2020-11-13 20:28 | Event Note ---
Date: 11/13/20 BP severe range at this time. RN requested to give IV Hydralazine as ordered now. Plan of care d/w pt and RN. Questions encouraged and addressed. Pt verbalizes understanding and agrees to proceed with POC. Orders placed in EMR for cervical ripening with cervidil. Dr. Burger aware
[2020-11-13] MEDS: MAGNESIUM SULFATE 40GM/1000ML 40 GM/1,000 ML BAG IV SCH ×2 (20:58→21:04)
[2020-11-13] MEDS ORDERED: MAGNESIUM SULFATE 4 GM/100 ML BAG IV ONE (21:00)
[2020-11-13] MEDS ORDERED: DINOPROSTONE 10 MG VAG SUPP VG ONE ×2 (21:30→23:10)
[2020-11-14] MEDS: ACETAMINOPHEN 325 MG TAB PO PRN ×2 (01:11→08:04)
--- NOTE | 2020-11-14 07:48 | Progress Note ---
Assessment and Plan 20yo pt w/ Severe Pre-E @ 33.2 Mag @ gm/hr, adequate output, last mag level 6.4, pt currently c/o H/A 11/20, blurred vision. Will treat w/ dose of Tylenol and reassess PRN. IOL in process, Cervidil to be removed @ 1100. All questions addressed, RN aware of plan. - Patient Problems (1) IUGR (intrauterine growth restriction) Current Visit: Yes Status: Acute Plan to address problem: Close monitoring of heart tones NICU Consult ordered (2) Pre-eclampsia Current Visit: Yes Status: Acute Plan to address problem: Continue Mag Sulfate Monitor Vital Signs Monitor Strict I&Os Mag Levels q6hr (3) 33 weeks gestation of Current Visit: Yes Status: Acute (4) COVID-19 Current Visit: Yes Status: Acute Subjective - Subjective Date of service: 11/14/20 Principal diagnosis: IUP @33.2wks, PreE with severe features, COVID+ Interval history: EDC Calculations by LMP: 12/31/2020 Past History : 4 Term Births: 0 Premature Births: 0 Living Children: 0 Para: 0 Mult. Births: 0 Prev : 0 Aborta: 3 Elect. Ab: 0 Spont. Ab: 2 Ectopics: 1 # 1 Delivery date: 2014 Weeks Gestation: 5 Delivery type: SAB Comments: No D&C # 2 Delivery date: 2016 Delivery type: SAB Comments: No D&C # 3 Delivery date: 10/2019 Delivery type: ectopic Delivery location: [facility] Comments: Lsc Left salpingectomy Past Medical History: Asthma Past Surgical History: Tonsillectomy Lsc Left salpingectomy Family History Summary: Other Family Member - Has No Family History of Ovarvian Cancer - Entered On: 08/01/2020 Other Family Member - Has No Family History of Breast Cancer - Entered On: 08/01/2020 Other Family Member - Has Family History Colon Cancer - Entered On: 08/01/2020 Social History: Marital Status: Single Children: 0 Occupation: Unemployed Smoking History: Patient is a former smoker. 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 Infection History Hx of STD: none HIV Risk Eval: no Hepatitis B Risk Eval: low risk Partner hx. of genital herpes: no Genetic History Congenital Heart Defect: Mom: no Dad: no Juju Disease: Mom: no Dad: no Thalassemia Mom: no Dad: no Neural Tube Defect Mom: no Dad: no Down's Syndrome Mom: no Dad: no Luis-Sachs Mom: no Dad: no Sickle Cell Disease/Trait Mom: no Dad: no Hemophilia Mom: no Dad: no Muscular Dystrophy Mom: no Dad: no Cystic Fibrosis Mom: no Dad: no [place] Chorea Mom: no Dad: no Mental Retardation Mom: no Dad: no Fragile X Mom: no Dad: no Other Genetic/Chromosomal Disorder Mom: no Dad: no Child w/other defect Mom: no Dad: no Enviromental Exposures Xray Exposure: no Medication, drug, or alcohol use since LMP: no Chemical/Other Exposure: no Exposure to Cat Liter: no Active Medications (reviewed today): None Current Allergies (reviewed today): No known allergies Patient reports: new complaints (H/A, Blurred Vision), movement normal, contractions (7/10), no loss of fluid, no vaginal bleeding Objective - Vital Signs Vital Signs: Vital Signs - 12hr 11/13/20 11/13/20 11/13/20 19:45 19:46 19:51 Pulse Rate 75 91 H 72 Blood Pressure 161/93 O2 Sat by Pulse 96 99 Oximetry 11/13/20 11/13/20 11/13/20 19:56 20:00 20:01 Pulse Rate 77 63 71 Blood Pressure 159/96 O2 Sat by Pulse 99 100 Oximetry 11/13/20 11/13/20 11/13/20 20:06 20:11 20:14 Pulse Rate 84 83 88 Blood Pressure 163/105 O2 Sat by Pulse 99 100 Oximetry 11/13/20 11/13/20 11/13/20 20:16 20:21 20:23 Pulse Rate 93 H 81 Blood Pressure 163/105 O2 Sat by Pulse 99 100 Oximetry 11/13/20 11/13/20 11/13/20 20:26 20:31 20:32 Pulse Rate 74 76 84 Blood Pressure 160/99 O2 Sat by Pulse 100 100 Oximetry 11/13/20 11/13/20 11/13/20 20:36 20:41 20:42 Pulse Rate 78 96 H 88 Blood Pressure 150/88 O2 Sat by Pulse 100 99 Oximetry 11/13/20 11/13/20 11/13/20 20:44 20:46 20:49 Pulse Rate 97 H 104 H 92 H Blood Pressure 144/81 148/80 O2 Sat by Pulse 98 Oximetry 11/13/20 11/13/20 11/13/20 20:51 20:54 20:56 Pulse Rate 98 H 98 H 101 H Blood Pressure 146/77 O2 Sat by Pulse 98 98 Oximetry 11/13/20 11/13/20 11/13/20 20:59 21:01 21:04 Pulse Rate 105 H 103 H 96 H Blood Pressure 136/74 144/75 O2 Sat by Pulse 99 Oximetry 11/13/20 11/13/20 11/13/20 21:06 21:11 21:16 Pulse Rate 99 H 100 H 89 Blood Pressure O2 Sat by Pulse 99 99 99 Oximetry 11/13/20 11/13/20 11/13/20 21:21 21:26 21:31 Pulse Rate 88 86 91 H Blood Pressure 132/75 O2 Sat by Pulse 99 99 99 Oximetry 11/13/20 11/13/20 11/13/20 21:35 21:36 21:41 Pulse Rate 82 82 85 Blood Pressure 125/64 O2 Sat by Pulse 99 99 Oximetry 11/13/20 11/13/20 11/13/20 21:46 21:50 21:51 Pulse Rate 80 77 71 Blood Pressure 127/61 O2 Sat by Pulse 99 99 Oximetry 11/13/20 11/13/20 11/13/20 21:56 22:01 22:05 Pulse Rate 77 74 73 Blood Pressure 120/56 O2 Sat by Pulse 98 98 Oximetry 11/13/20 11/13/20 11/13/20 22:06 22:11 22:16 Pulse Rate 73 76 75 Blood Pressure O2 Sat by Pulse 98 98 98 Oximetry 11/13/20 11/13/20 11/13/20 22:20 22:21 22:26 Pulse Rate 74 73 78 Blood Pressure 119/56 O2 Sat by Pulse 98 98 Oximetry 10/05/0111/13/20 11/13/20 22:31 22:35 22:36 Pulse Rate 72 84 73 Blood Pressure 123/58 O2 Sat by Pulse 98 99 Oximetry 11/13/20 11/13/20 11/13/20 22:41 22:46 22:50 Pulse Rate 75 73 68 Blood Pressure 127/62 O2 Sat by Pulse 100 99 Oximetry 11/13/20 11/13/20 11/13/20 22:51 22:56 22:58 Pulse Rate 69 85 Blood Pressure O2 Sat by Pulse 100 100 87 Oximetry 11/13/20 11/13/20 11/13/20 23:01 23:06 23:11 Pulse Rate 84 84 86 Blood Pressure 152/88 O2 Sat by Pulse 82 L 98 100 Oximetry 11/13/20 11/13/20 11/13/20 23:16 23:20 23:21 Pulse Rate 80 86 91 H Blood Pressure 134/80 O2 Sat by Pulse 100 100 Oximetry 11/13/20 11/13/20 11/13/20 23:26 23:31 23:35 Pulse Rate 74 84 78 Blood Pressure 119/77 O2 Sat by Pulse 100 100 Oximetry 11/13/20 11/13/20 11/13/20 23:36 23:41 23:46 Pulse Rate 84 76 81 Blood Pressure O2 Sat by Pulse 100 99 100 Oximetry 11/13/20 11/13/20 11/14/20 23:51 23:56 00:01 Pulse Rate 77 79 75 Blood Pressure O2 Sat by Pulse 99 99 98 Oximetry 11/14/20 11/14/20 11/14/20 00:06 00:07 00:11 Pulse Rate 93 H 82 75 Blood Pressure 124/71 O2 Sat by Pulse 99 99 Oximetry 11/14/20 11/14/20 11/14/20 00:16 00:21 00:26 Pulse Rate 85 89 83 Blood Pressure O2 Sat by Pulse 99 99 98 Oximetry 11/14/20 11/14/20 11/14/20 00:31 00:36 00:37 Pulse Rate 81 87 80 Blood Pressure 151/86 O2 Sat by Pulse 100 99 Oximetry 11/14/20 11/14/20 11/14/20 00:41 00:46 00:51 Pulse Rate 79 90 79 Blood Pressure O2 Sat by Pulse 100 100 99 Oximetry 11/14/20 11/14/20 11/14/20 00:56 01:01 01:06 Pulse Rate 71 81 83 Blood Pressure 144/82 O2 Sat by Pulse 99 98 99 Oximetry 11/14/20 11/14/20 11/14/20 01:11 01:16 01:21 Pulse Rate 84 88 74 Blood Pressure 156/86 O2 Sat by Pulse 100 100 99 Oximetry 11/14/20 11/14/20 11/14/20 01:26 01:31 01:36 Pulse Rate 78 70 85 Blood Pressure 136/84 O2 Sat by Pulse 98 98 99 Oximetry 11/14/20 11/14/20 11/14/20 01:41 01:46 01:51 Pulse Rate 70 71 72 Blood Pressure O2 Sat by Pulse 98 98 99 Oximetry 11/14/20 11/14/20 11/14/20 01:56 02:01 02:06 Pulse Rate 72 77 77 Blood Pressure O2 Sat by Pulse 98 98 98 Oximetry 11/14/20 11/14/20 11/14/20 02:07 02:11 02:16 Pulse Rate 74 77 69 Blood Pressure 133/75 O2 Sat by Pulse 99 99 Oximetry 11/14/20 11/14/20 11/14/20 02:21 02:26 02:31 Pulse Rate 71 76 79 Blood Pressure O2 Sat by Pulse 99 99 99 Oximetry 11/14/20 11/14/20 11/14/20 02:36 02:37 02:41 Pulse Rate 76 82 71 Blood Pressure 149/86 O2 Sat by Pulse 99 99 Oximetry 11/14/20 11/14/20 11/14/20 02:46 02:51 02:56 Pulse Rate 69 71 71 Blood Pressure O2 Sat by Pulse 99 99 98 Oximetry 11/14/20 11/14/20 11/14/20 03:01 03:06 03:07 Pulse Rate 79 72 89 Blood Pressure 133/71 O2 Sat by Pulse 98 98 Oximetry 11/14/20 11/14/20 11/14/20 03:11 03:16 03:21 Pulse Rate 73 84 70 Blood Pressure O2 Sat by Pulse 98 98 99 Oximetry 11/14/20 11/14/20 11/14/20 03:26 03:31 03:36 Pulse Rate 75 79 96 H Blood Pressure 129/87 O2 Sat by Pulse 99 99 99 Oximetry 11/14/20 11/14/20 11/14/20 03:41 03:46 03:51 Pulse Rate 71 88 78 Blood Pressure O2 Sat by Pulse 98 98 99 Oximetry 11/14/20 11/14/20 11/14/20 03:56 04:01 04:06 Pulse Rate 80 83 82 Blood Pressure O2 Sat by Pulse 98 100 100 Oximetry 11/14/20 11/14/20 11/14/20 04:07 04:11 04:16 Pulse Rate 85 74 75 Blood Pressure 187/96 O2 Sat by Pulse 100 100 Oximetry 11/14/20 11/14/20 11/14/20 04:21 04:26 04:31 Pulse Rate 82 76 82 Blood Pressure O2 Sat by Pulse 100 100 100 Oximetry 11/14/20 11/14/20 11/14/20 04:36 04:37 04:41 Pulse Rate 75 85 74 Blood Pressure 144/82 O2 Sat by Pulse 100 98 Oximetry 11/14/20 11/14/20 11/14/20 04:46 04:51 04:56 Pulse Rate 78 80 85 Blood Pressure O2 Sat by Pulse 98 97 98 Oximetry 11/14/20 11/14/20 11/14/20 05:01 05:06 05:07 Pulse Rate 90 89 94 H Blood Pressure 147/83 O2 Sat by Pulse 97 97 Oximetry 11/14/20 11/14/20 11/14/20 05:11 05:16 05:21 Pulse Rate 87 81 80 Blood Pressure O2 Sat by Pulse 97 97 97 Oximetry 11/14/20 11/14/20 11/14/20 05:26 05:31 05:36 Pulse Rate 82 78 76 Blood Pressure O2 Sat by Pulse 98 97 97 Oximetry 11/14/20 11/14/20 11/14/20 05:37 05:41 05:46 Pulse Rate 82 80 77 Blood Pressure 126/73 O2 Sat by Pulse 97 97 Oximetry 11/14/20 11/14/20 11/14/20 05:51 05:56 06:01 Pulse Rate 77 77 78 Blood Pressure O2 Sat by Pulse 97 97 97 Oximetry 11/14/20 11/14/20 11/14/20 06:06 06:11 06:16 Pulse Rate 76 82 79 Blood Pressure 142/83 O2 Sat by Pulse 97 98 99 Oximetry 10/04/21 10/04/21 10/04/21 06:21 06:26 06:31 Pulse Rate 80 94 H 78 Blood Pressure O2 Sat by Pulse 99 99 98 Oximetry 11/14/20 11/14/20 11/14/20 06:36 06:37 06:41 Pulse Rate 77 85 75 Blood Pressure 139/90 O2 Sat by Pulse 98 98 Oximetry 11/14/20 11/14/20 11/14/20 06:46 06:51 06:56 Pulse Rate 78 78 87 Blood Pressure O2 Sat by Pulse 98 98 98 Oximetry 11/14/20 11/14/20 11/14/20 07:01 07:06 07:07 Pulse Rate 95 H 80 77 Blood Pressure 166/101 O2 Sat by Pulse 97 99 Oximetry 11/14/20 11/14/20 11/14/20 07:11 07:16 07:21 Pulse Rate 81 78 76 Blood Pressure O2 Sat by Pulse 99 98 98 Oximetry 11/14/20 11/14/20 11/14/20 07:26 07:31 07:32 Pulse Rate 79 75 81 Blood Pressure 153/96 O2 Sat by Pulse 98 98 Oximetry 11/14/20 11/14/20 11/14/20 07:36 07:37 07:40 Pulse Rate 78 78 81 Blood Pressure 177/107 164/93 O2 Sat by Pulse 98 94 Oximetry 11/14/20 07:41 Pulse Rate 81 Blood Pressure O2 Sat by Pulse 99 Oximetry - Exam Abdomen: Present: normal appearance, soft Uterus: Present: normal FHR: auscultation normal Uterine Contraction Monitor Mode: Palpation Uterine Contraction Pattern: Irregular Uterine Contraction Intensity: Mild - Labs Labs: Abnormal Labs 11/11/20 11/11/20 11/12/20 16:30 17:56 19:15 [place] % (Auto) 8.1 H Magnesium Urine Creatinine 89.1 H Ur Total Protein 24 Hr 1480.00 H Urine Total Protein 128 H 148 H Coronavirus (PCR) 11/12/20 11/14/20 11/14/20 Unknown 00:36 06:58 [place] % (Auto) Magnesium 5.10 H 6.40 H Urine Creatinine Ur Total Protein 24 Hr Urine Total Protein Coronavirus (PCR) Positive A Laboratory Results - last 24 hr 11/14/20 11/14/20 00:36 06:58 Magnesium 5.10 H 6.40 H
[2020-11-14] MEDS: LACTATED RINGERS 1,000 ML IV SCH ×2 (09:50→15:12)
[2020-11-14] MEDS: PRENATAL VIT27-FE FUMARATE-FOLIC ACID VIT TAB PO SCH (09:50)
--- NOTE | 2020-11-14 10:26 | Event Note ---
Date: 11/14/20 reviewed b/p 191/113, Hydralizine ordered. RN LORRIE called and informed to give dose and cont close monitoring of b/p and urine output. Pt instructed not to lay on arm with b/p cuff.
[2020-11-14] MEDS: hydrALAZINE 20 MG/1 ML INJ IV PRN (10:40)
[2020-11-14] MEDS ORDERED: hydrALAZINE 20 MG/1 ML INJ IV PRN (11:00)
[2020-11-14] MEDS ORDERED: BUTORPHANOL 2 MG/1 ML INJ IV PRN (13:02)
--- NOTE | 2020-11-14 13:07 | Progress Note ---
Assessment and Plan SVE performed and Cooks catheter placed without difficulty, inner and outer balloon filled w/ 60ML Sterile Saline, Cx 1.5/70/0, pt tolerated well. Will reassess PRN. - Patient Problems (1) IUGR (intrauterine growth restriction) Current Visit: Yes Status: Acute (2) Pre-eclampsia Current Visit: Yes Status: Acute (3) 33 weeks gestation of Current Visit: Yes Status: Acute (4) COVID-19 Current Visit: Yes Status: Acute (5) GBS (group B Streptococcus carrier), +RV culture, currently Current Visit: Yes Status: Acute Plan to address problem: Ampicillin IV Q4 until delivery Subjective - Subjective Date of service: 11/14/20 Principal diagnosis: IUP @33.2wks, PreE with severe features, COVID+ Interval history: EDC Calculations by LMP: 12/31/2020 Past History : 4 Term Births: 0 Premature Births: 0 Living Children: 0 Para: 0 Mult. Births: 0 Prev : 0 Aborta: 3 Elect. Ab: 0 Spont. Ab: 2 Ectopics: 1 # 1 Delivery date: 2014 Weeks Gestation: 5 Delivery type: SAB Comments: No D&C # 2 Delivery date: 2016 Delivery type: SAB Comments: No D&C # 3 Delivery date: 10/2019 Delivery type: ectopic Delivery location: [facility] Comments: Lsc Left salpingectomy Past Medical History: Asthma Past Surgical History: Tonsillectomy Lsc Left salpingectomy Family History Summary: Other Family Member - Has No Family History of Ovarvian Cancer - Entered On: 08/01/2020 Other Family Member - Has No Family History of Breast Cancer - Entered On: 08/01/2020 Other Family Member - Has Family History Colon Cancer - Entered On: 08/01/2020 Social History: Marital Status: Single Children: 0 Occupation: Unemployed Smoking History: Patient is a former smoker. Risk Factors Year quit smokin02/2020 Passive smoke exposure: no Drug use: yes HIV high risk behavior: no Caffeine use (drinks/day): <1 Seatbelt use: 100 % Past Medical History Surgery (Non-phlebotomist prn): Tonsillectomy Lsc Left salpingectomy Abnormal PAP: negative Uterine Anomaly: negative Social Hx: Marital Status: Single Children: 0 Occupation: Unemployed Smoking History: Patient is a former smoker. Infection History Hx of STD: none HIV Risk Eval: no Hepatitis B Risk Eval: low risk Partner hx. of genital herpes: no Genetic History Congenital Heart Defect: Mom: no Dad: no Juju Disease: Mom: no Dad: no Thalassemia Mom: no Dad: no Neural Tube Defect Mom: no Dad: no Down's Syndrome Mom: no Dad: no Luis-Sachs Mom: no Dad: no Sickle Cell Disease/Trait Mom: no Dad: no Hemophilia Mom: no Dad: no Muscular Dystrophy Mom: no Dad: no Cystic Fibrosis Mom: no Dad: no [place] Chorea Mom: no Dad: no Mental Retardation Mom: no Dad: no Fragile X Mom: no Dad: no Other Genetic/Chromosomal Disorder Mom: no Dad: no Child w/other defect Mom: no Dad: no Enviromental Exposures Xray Exposure: no Medication, drug, or alcohol use since LMP: no Chemical/Other Exposure: no Exposure to Cat Liter: no Active Medications (reviewed today): None Current Allergies (reviewed today): No known allergies Patient reports: new complaints (H/A, Blurred Vision), movement normal, contractions (10), no loss of fluid, no vaginal bleeding Objective - Vital Signs Vital Signs: Vital Signs - 12hr 11/14/20 11/14/20 11/14/20 01:06 01:11 01:16 Temperature Pulse Rate 83 84 88 Respiratory Rate Blood Pressure 144/82 156/86 O2 Sat by Pulse 99 100 100 Oximetry O2 Sat by Pulse Oximetry [ Bilateral] 11/14/20 11/14/20 11/14/20 01:21 01:26 01:31 Temperature Pulse Rate 74 78 70 Respiratory Rate Blood Pressure O2 Sat by Pulse 99 98 98 Oximetry O2 Sat by Pulse Oximetry [ Bilateral] 11/14/20 11/14/20 11/14/20 01:36 01:41 01:46 Temperature Pulse Rate 85 70 71 Respiratory Rate Blood Pressure 136/84 O2 Sat by Pulse 99 98 98 Oximetry O2 Sat by Pulse Oximetry [ Bilateral] 11/14/20 11/14/20 11/14/20 01:51 01:56 02:01 Temperature Pulse Rate 72 72 77 Respiratory Rate Blood Pressure O2 Sat by Pulse 99 98 98 Oximetry O2 Sat by Pulse Oximetry [ Bilateral] 11/14/20 11/14/20 11/14/20 02:06 02:07 02:11 Temperature Pulse Rate 77 74 77 Respiratory Rate Blood Pressure 133/75 O2 Sat by Pulse 98 99 Oximetry O2 Sat by Pulse Oximetry [ Bilateral] 11/14/20 11/14/20 11/14/20 02:16 02:21 02:26 Temperature Pulse Rate 69 71 76 Respiratory Rate Blood Pressure O2 Sat by Pulse 99 99 99 Oximetry O2 Sat by Pulse Oximetry [ Bilateral] 11/14/20 11/14/20 11/14/20 02:31 02:36 02:37 Temperature Pulse Rate 79 76 82 Respiratory Rate Blood Pressure 149/86 O2 Sat by Pulse 99 99 Oximetry O2 Sat by Pulse Oximetry [ Bilateral] 11/14/20 11/14/20 11/14/20 02:41 02:46 02:51 Temperature Pulse Rate 71 69 71 Respiratory Rate Blood Pressure O2 Sat by Pulse 99 99 99 Oximetry O2 Sat by Pulse Oximetry [ Bilateral] 11/14/20 11/14/20 11/14/20 02:56 03:01 03:06 Temperature Pulse Rate 71 79 72 Respiratory Rate Blood Pressure O2 Sat by Pulse 98 98 98 Oximetry O2 Sat by Pulse Oximetry [ Bilateral] 11/14/20 11/14/20 11/14/20 03:07 03:11 03:16 Temperature Pulse Rate 89 73 84 Respiratory Rate Blood Pressure 133/71 O2 Sat by Pulse 98 98 Oximetry O2 Sat by Pulse Oximetry [ Bilateral] 11/14/20 11/14/20 11/14/20 03:21 03:26 03:31 Temperature Pulse Rate 70 75 79 Respiratory Rate Blood Pressure O2 Sat by Pulse 99 99 99 Oximetry O2 Sat by Pulse Oximetry [ Bilateral] 11/14/20 11/14/20 11/14/20 03:36 03:41 03:46 Temperature Pulse Rate 96 H 71 88 Respiratory Rate Blood Pressure 129/87 O2 Sat by Pulse 99 98 98 Oximetry O2 Sat by Pulse Oximetry [ Bilateral] 11/14/20 11/14/20 11/14/20 03:51 03:56 04:01 Temperature Pulse Rate 78 80 83 Respiratory Rate Blood Pressure O2 Sat by Pulse 99 98 100 Oximetry O2 Sat by Pulse Oximetry [ Bilateral] 11/14/20 11/14/20 11/14/20 04:06 04:07 04:11 Temperature Pulse Rate 82 85 74 Respiratory Rate Blood Pressure 187/96 O2 Sat by Pulse 100 100 Oximetry O2 Sat by Pulse Oximetry [ Bilateral] 11/14/20 11/14/20 11/14/20 04:16 04:21 04:26 Temperature Pulse Rate 75 82 76 Respiratory Rate Blood Pressure O2 Sat by Pulse 100 100 100 Oximetry O2 Sat by Pulse Oximetry [ Bilateral] 11/14/20 11/14/20 11/14/20 04:31 04:36 04:37 Temperature Pulse Rate 82 75 85 Respiratory Rate Blood Pressure 144/82 O2 Sat by Pulse 100 100 Oximetry O2 Sat by Pulse Oximetry [ Bilateral] 11/14/20 11/14/20 11/14/20 04:41 04:46 04:51 Temperature Pulse Rate 74 78 80 Respiratory Rate Blood Pressure O2 Sat by Pulse 98 98 97 Oximetry O2 Sat by Pulse Oximetry [ Bilateral] 11/14/20 11/14/20 11/14/20 04:56 05:01 05:06 Temperature Pulse Rate 85 90 89 Respiratory Rate Blood Pressure O2 Sat by Pulse 98 97 97 Oximetry O2 Sat by Pulse Oximetry [ Bilateral] 11/14/20 11/14/20 11/14/20 05:07 05:11 05:16 Temperature Pulse Rate 94 H 87 81 Respiratory Rate Blood Pressure 147/83 O2 Sat by Pulse 97 97 Oximetry O2 Sat by Pulse Oximetry [ Bilateral] 11/14/20 11/14/20 11/14/20 05:21 05:26 05:31 Temperature Pulse Rate 80 82 78 Respiratory Rate Blood Pressure O2 Sat by Pulse 97 98 97 Oximetry O2 Sat by Pulse Oximetry [ Bilateral] 11/14/20 11/14/20 11/14/20 05:36 05:37 05:41 Temperature Pulse Rate 76 82 80 Respiratory Rate Blood Pressure 126/73 O2 Sat by Pulse 97 97 Oximetry O2 Sat by Pulse Oximetry [ Bilateral] 11/14/20 11/14/20 11/14/20 05:46 05:51 05:56 Temperature Pulse Rate 77 77 77 Respiratory Rate Blood Pressure O2 Sat by Pulse 97 97 97 Oximetry O2 Sat by Pulse Oximetry [ Bilateral] 11/14/20 11/14/20 11/14/20 06:01 06:06 06:11 Temperature Pulse Rate 78 76 82 Respiratory Rate Blood Pressure 142/83 O2 Sat by Pulse 97 97 98 Oximetry O2 Sat by Pulse Oximetry [ Bilateral] 1011/14/20 11/14/20 06:16 06:21 06:26 Temperature Pulse Rate 79 80 94 H Respiratory Rate Blood Pressure O2 Sat by Pulse 99 99 99 Oximetry O2 Sat by Pulse Oximetry [ Bilateral] 11/14/20 11/14/20 11/14/20 06:31 06:36 06:37 Temperature Pulse Rate 78 77 85 Respiratory Rate Blood Pressure 139/90 O2 Sat by Pulse 98 98 Oximetry O2 Sat by Pulse Oximetry [ Bilateral] 11/14/20 11/14/20 11/14/20 06:41 06:46 06:51 Temperature Pulse Rate 75 78 78 Respiratory Rate Blood Pressure O2 Sat by Pulse 98 98 98 Oximetry O2 Sat by Pulse Oximetry [ Bilateral] 11/14/20 11/14/20 11/14/20 06:56 07:01 07:06 Temperature Pulse Rate 87 95 H 80 Respiratory Rate Blood Pressure O2 Sat by Pulse 98 97 99 Oximetry O2 Sat by Pulse Oximetry [ Bilateral] 11/14/20 11/14/20 11/14/20 07:07 07:11 07:16 Temperature Pulse Rate 77 81 78 Respiratory Rate Blood Pressure 166/101 O2 Sat by Pulse 99 98 Oximetry O2 Sat by Pulse Oximetry [ Bilateral] 11/14/20 11/14/20 11/14/20 07:21 07:26 07:31 Temperature Pulse Rate 76 79 75 Respiratory Rate Blood Pressure O2 Sat by Pulse 98 98 98 Oximetry O2 Sat by Pulse Oximetry [ Bilateral] 11/14/20 11/14/20 11/14/20 07:32 07:36 07:37 Temperature Pulse Rate 81 78 78 Respiratory Rate Blood Pressure 153/96 177/107 O2 Sat by Pulse 98 94 Oximetry O2 Sat by Pulse Oximetry [ Bilateral] 11/14/20 11/14/20 11/14/20 07:40 07:41 07:46 Temperature Pulse Rate 81 81 87 Respiratory Rate Blood Pressure 164/93 O2 Sat by Pulse 99 99 Oximetry O2 Sat by Pulse 99 Oximetry [ Bilateral] 11/14/20 11/14/20 11/14/20 07:51 07:56 08:01 Temperature 98.2 F Pulse Rate 84 83 80 Respiratory 18 Rate Blood Pressure O2 Sat by Pulse 99 99 98 Oximetry O2 Sat by Pulse Oximetry [ Bilateral] 11/14/20 11/14/20 11/14/20 08:06 08:11 08:16 Temperature Pulse Rate 94 H 81 79 Respiratory Rate Blood Pressure 143/102 O2 Sat by Pulse 98 100 100 Oximetry O2 Sat by Pulse Oximetry [ Bilateral] 11/14/20 11/14/20 11/14/20 08:21 08:26 08:31 Temperature Pulse Rate 85 76 76 Respiratory Rate Blood Pressure O2 Sat by Pulse 99 98 98 Oximetry O2 Sat by Pulse Oximetry [ Bilateral] 11/14/20 11/14/20 11/14/20 08:36 08:37 08:41 Temperature Pulse Rate 75 79 72 Respiratory Rate Blood Pressure 160/89 O2 Sat by Pulse 98 98 Oximetry O2 Sat by Pulse Oximetry [ Bilateral] 11/14/20 11/14/20 11/14/20 08:46 08:51 08:56 Temperature Pulse Rate 77 77 75 Respiratory Rate Blood Pressure O2 Sat by Pulse 99 98 98 Oximetry O2 Sat by Pulse Oximetry [ Bilateral] 11/14/20 11/14/20 11/14/20 09:01 09:06 09:07 Temperature Pulse Rate 76 76 76 Respiratory Rate Blood Pressure 155/92 O2 Sat by Pulse 98 98 Oximetry O2 Sat by Pulse Oximetry [ Bilateral] 11/14/20 11/14/20 11/14/20 09:11 09:16 09:21 Temperature Pulse Rate 75 73 74 Respiratory Rate Blood Pressure O2 Sat by Pulse 98 98 98 Oximetry O2 Sat by Pulse Oximetry [ Bilateral] 11/14/20 11/14/20 11/14/20 09:26 09:31 09:36 Temperature Pulse Rate 69 72 75 Respiratory Rate Blood Pressure O2 Sat by Pulse 99 99 99 Oximetry O2 Sat by Pulse Oximetry [ Bilateral] 11/14/20 11/14/20 11/14/20 09:37 09:41 09:46 Temperature Pulse Rate 78 80 96 H Respiratory Rate Blood Pressure 170/99 O2 Sat by Pulse 98 97 Oximetry O2 Sat by Pulse Oximetry [ Bilateral] 11/14/20 11/14/20 11/14/20 09:48 09:51 09:56 Temperature Pulse Rate 80 88 81 Respiratory Rate Blood Pressure 151/84 170/90 O2 Sat by Pulse 99 98 Oximetry O2 Sat by Pulse Oximetry [ Bilateral] 11/14/20 11/14/20 11/14/20 10:01 10:06 10:07 Temperature Pulse Rate 81 113 H 104 H Respiratory Rate Blood Pressure 191/113 O2 Sat by Pulse 100 98 Oximetry O2 Sat by Pulse Oximetry [ Bilateral] 11/14/20 11/14/20 11/14/20 10:08 10:11 10:16 Temperature Pulse Rate 100 H 86 80 Respiratory Rate Blood Pressure O2 Sat by Pulse 93 98 98 Oximetry O2 Sat by Pulse Oximetry [ Bilateral] 11/14/20 11/14/20 11/14/20 10:21 10:24 10:26 Temperature Pulse Rate 86 81 87 Respiratory Rate Blood Pressure 148/79 O2 Sat by Pulse 96 97 Oximetry O2 Sat by Pulse Oximetry [ Bilateral] 11/14/20 11/14/20 11/14/20 10:31 10:36 10:37 Temperature Pulse Rate 85 87 86 Respiratory Rate Blood Pressure 143/72 O2 Sat by Pulse 98 98 Oximetry O2 Sat by Pulse Oximetry [ Bilateral] 11/14/20 11/14/20 11/14/20 10:40 10:41 10:46 Temperature Pulse Rate 85 85 Respiratory Rate Blood Pressure 190/113 O2 Sat by Pulse 98 98 Oximetry O2 Sat by Pulse Oximetry [ Bilateral] 11/14/20 11/14/20 11/14/20 10:51 10:56 11:01 Temperature Pulse Rate 84 83 83 Respiratory Rate Blood Pressure O2 Sat by Pulse 98 98 98 Oximetry O2 Sat by Pulse Oximetry [ Bilateral] 11/14/20 11/14/20 11/14/20 11:06 11:07 11:11 Temperature Pulse Rate 81 83 82 Respiratory Rate Blood Pressure 131/71 O2 Sat by Pulse 98 98 Oximetry O2 Sat by Pulse Oximetry [ Bilateral] 11/14/20 11/14/20 11/14/20 11:16 11:21 11:26 Temperature Pulse Rate 84 85 84 Respiratory Rate Blood Pressure O2 Sat by Pulse 97 97 97 Oximetry O2 Sat by Pulse Oximetry [ Bilateral] 11/14/20 11/14/20 11/14/20 11:31 11:36 11:41 Temperature Pulse Rate 83 106 H 87 Respiratory Rate Blood Pressure O2 Sat by Pulse 97 98 98 Oximetry O2 Sat by Pulse Oximetry [ Bilateral] 11/14/20 11/14/20 11/14/20 11:42 11:46 11:51 Temperature 98.2 F Pulse Rate 93 H 90 95 H Respiratory 16 Rate Blood Pressure O2 Sat by Pulse 99 98 98 Oximetry O2 Sat by Pulse Oximetry [ Bilateral] 11/14/20 11/14/20 11/14/20 11:56 11:57 12:01 Temperature Pulse Rate 99 H 90 88 Respiratory Rate Blood Pressure 146/95 O2 Sat by Pulse 98 99 Oximetry O2 Sat by Pulse Oximetry [ Bilateral] 11/14/20 11/14/20 11/14/20 12:06 12:11 12:16 Temperature Pulse Rate 84 82 82 Respiratory Rate Blood Pressure O2 Sat by Pulse 99 99 99 Oximetry O2 Sat by Pulse Oximetry [ Bilateral] 11/14/20 11/14/20 11/14/20 12:17 12:21 12:26 Temperature Pulse Rate 86 83 80 Respiratory Rate Blood Pressure 139/73 O2 Sat by Pulse 99 99 Oximetry O2 Sat by Pulse Oximetry [ Bilateral] 11/14/20 11/14/20 11/14/20 12:31 12:36 12:37 Temperature Pulse Rate 77 78 77 Respiratory Rate Blood Pressure 130/65 O2 Sat by Pulse 99 99 Oximetry O2 Sat by Pulse Oximetry [ Bilateral] 11/14/20 11/14/20 11/14/20 12:41 12:46 12:51 Temperature Pulse Rate 81 78 94 H Respiratory Rate Blood Pressure O2 Sat by Pulse 99 99 99 Oximetry O2 Sat by Pulse Oximetry [ Bilateral] 11/14/20 11/14/20 12:56 12:57 Temperature Pulse Rate 83 85 Respiratory Rate Blood Pressure 133/73 O2 Sat by Pulse 97 Oximetry O2 Sat by Pulse Oximetry [ Bilateral] - Exam Breasts: normal Abdomen: Present: normal appearance, soft. Absent: distention, tenderness Vulva: both: normal Uterus: Present: normal FHR: category 2 Uterine Contraction Monitor Mode: External Cervical Dilatation: 1.5 Cervical Effacement Percentage: 70 station: 0 Uterine Contraction Pattern: Irregular Uterine Tone Measurement Phase: Resting Uterine Contraction Intensity: Mild - Labs Labs: Abnormal Labs 11/11/20 11/11/20 11/12/20 16:30 17:56 19:15 Oliver % (Auto) 8.1 H Magnesium Urine Creatinine 89.1 H Ur Total Protein 24 Hr 1480.00 H Urine Total Protein 128 H 148 H Coronavirus (PCR) 11/12/20 11/14/20 11/14/20 Unknown 00:36 06:58 Oliver % (Auto) Magnesium 5.10 H 6.40 H Urine Creatinine Ur Total Protein 24 Hr Urine Total Protein Coronavirus (PCR) Positive A Laboratory Results - last 24 hr 11/14/20 11/14/20 00:36 06:58 Magnesium 5.10 H 6.40 H
[2020-11-14] MEDS ORDERED: AMPICILLIN/NS 1 GM/50 ML 1 GM/50 ML BAG IV SCH (14:00)
[2020-11-14] MEDS ORDERED: AMPICILLIN/NS 2 GM/100 ML 2 GM/100 ML BAG IV ONE (14:12)
--- NOTE | 2020-11-14 14:48 | Event Note ---
Date: 11/14/20 FHT reviewed with minimal to absent variability s/p stadol for pain. reviewed with patient and rn - pt needs mag level drawn DEJUAN. encouraged pt to get epidural, no additional doses of IV sedation.
[2020-11-14] MEDS ORDERED: ePHEDrine SULFATE 50 MG/1 ML INJ ONE (14:59)
[2020-11-14] MEDS: ONDANSETRON 4 MG/2 ML INJ IV PRN (15:12)
--- NOTE | 2020-11-14 15:19 | Anesthesia Consultation ---
Anesthesia Consult and Med Hx Date of service: 11/14/20 - Airway Anesthetic Teeth Evaluation: Good ROM Head & Neck: Adequate Mental/Hyoid Distance: Adequate Mallampati Class: Class II Intubation Access Assessment: Probably Good - Pulmonary Exam CTA: Yes - Cardiac Exam Cardiac Exam: RRR - Pre-Operative Health Status ASA Pre-Surgery Classification: ASA3 Proposed Anesthetic Plan: Epidural - Pulmonary Hx Asthma: Yes Hx Respiratory Symptoms: Yes (Covid) COPD: No Hx Pneumonia: No - Cardiovascular System Hx Hypertension: Yes - Central Nervous System Hx Seizures: No Hx Psychiatric Problems: No - Endocrine Hx Renal Disease: No Hx End Stage Renal Disease: No Hx Hypothyroidism: No Hx Hyperthyroidism: No - Hematic Hx Anemia: No Hx Sickle Cell Disease: No - Other Systems Hx Alcohol Use: No
[2020-11-14] MEDS ORDERED: NALOXONE 2 MG/2 ML INJ IV PRN (15:21)
[2020-11-14] MEDS ORDERED: ePHEDrine SULFATE 50 MG/1 ML INJ IV PRN (15:21)
[2020-11-14] MEDS ORDERED: fentaNYL-BUPIV 2 MCG/ML-0.125% 200 MCG/100 ML BAG EPIDURAL SCH (16:00)
[2020-11-14 16:06] LABS: Hematocrit 39.6 % (30.3-42.9); Hemoglobin 13.3 gm/dl (10.1-14.3); Mean Corpuscular HGB Conc 34 % (30-34); Mean Corpuscular Volume 94 fl (79-97); Platelet Count 257 K/mm3 (140-440); Red Blood Count 4.23 M/mm3 (3.65-5.03); Red Cell Distribution Width 14.9 % (13.2-15.2)
[2020-11-14] MEDS: MAGNESIUM SULFATE 40GM/1000ML 40 GM/1,000 ML BAG IV SCH (16:53)
--- NOTE | 2020-11-14 16:59 | Progress Note ---
Labor Epidural - Labor Epidural Start Time: 16:45 Stop Time: 16:48 Performed by:: SANA AVALOS Procedure: Patient is requesting epidural for labor pain. H&P, and labs reviewed. Procedure explained, questions answered, consent obtained. Patient in sitting position with blood pressure cuff and pulse ox on and working. Timeout performed immediately before start of procedure. Sterile chlorahexadine 0.5% prep/drape. 3 mL 1% lidocaine skin wheal at L[3]-L[4]. 18-gauge [id number] epidural needle advanced to [id number] with saline at [7] cm. 27-gauge spinal needle advanced until clear, free-flowing CSF. Intrathecal dexmedetomidine [5] mcg administered and needle removed. Epidural catheter advanced to [12] cm, negative aspiration for blood and csf, negative test dose 3 ml 1.5% lidocaine with epinephrine. Steri-strips and tegaderm applied, followed by tape reinforcement. Patient tolerated procedure well.
--- NOTE | 2020-11-14 18:25 | Progress Note ---
Assessment and Plan variability since dose if IV stadol, pt is now comfortable with epidural. Rod's cath fell out at approx 1800. Las mag level. 6.6. reviewed with Dr. Mcmahon; will decrease mag sulfate to 1gm/hr and continue close observation. - Patient Problems (1) IUGR (intrauterine growth restriction) Current Visit: Yes Status: Acute (2) Pre-eclampsia Current Visit: Yes Status: Acute Qualifiers: Trimester: third trimester Qualified Code(s): O14.93 - Unspecified pre- eclampsia, third trimester (3) 33 weeks gestation of Current Visit: Yes Status: Acute (4) COVID-19 Current Visit: Yes Status: Acute Subjective - Subjective Date of service: 11/14/20 Principal diagnosis: IUP @33.2wks, PreE with severe features, COVID+ Interval history: EDC Calculations by LMP: 12/31/2020 Past History : 4 Term Births: 0 Premature Births: 0 Living Children: 0 Para: 0 Mult. Births: 0 Prev : 0 Aborta: 3 Elect. Ab: 0 Spont. Ab: 2 Ectopics: 1 # 1 Delivery date: 2014 Weeks Gestation: 5 Delivery type: SAB Comments: No D&C # 2 Delivery date: 2016 Delivery type: SAB Comments: No D&C # 3 Delivery date: 10/2019 Delivery type: ectopic Delivery location: [facility] Comments: [facility]sc Left salpingectomy Past Medical History: Asthma Past Surgical History: Tonsillectomy Lsc Left salpingectomy Family History Summary: Other Family Member - Has No Family History of Ovarvian Cancer - Entered On: 08/01/2020 Other Family Member - Has No Family History of Breast Cancer - Entered On: 08/01/2020 Other Family Member - Has Family History Colon Cancer - Entered On: 08/01/2020 Social History: Marital Status: Single Children: 0 Occupation: Unemployed Smoking History: Patient is a former smoker. 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 Infection History Hx of STD: none HIV Risk Eval: no Hepatitis B Risk Eval: low risk Partner hx. of genital herpes: no Genetic History Congenital Heart Defect: Mom: no Dad: no Juju Disease: Mom: no Dad: no Thalassemia Mom: no Dad: no Neural Tube Defect Mom: no Dad: no Down's Syndrome Mom: no Dad: no Luis-Sachs Mom: no Dad: no Sickle Cell Disease/Trait Mom: no Dad: no Hemophilia Mom: no Dad: no Muscular Dystrophy Mom: no Dad: no Cystic Fibrosis Mom: no Dad: no [place] Chorea Mom: no Dad: no Mental Retardation Mom: no Dad: no Fragile X Mom: no Dad: no Other Genetic/Chromosomal Disorder Mom: no Dad: no Child w/other defect Mom: no Dad: no Enviromental Exposures Xray Exposure: no Medication, drug, or alcohol use since LMP: no Chemical/Other Exposure: no Exposure to Cat Liter: no Active Medications (reviewed today): None Current Allergies (reviewed today): No known allergies Patient reports: movement normal, no new complaints, no loss of fluid, no vaginal bleeding Objective - Vital Signs Vital Signs: Vital Signs - 12hr 11/14/20 11/14/20 11/14/20 06:26 06:31 06:36 Temperature Pulse Rate 94 H 78 77 Respiratory Rate Blood Pressure O2 Sat by Pulse 99 98 98 Oximetry O2 Sat by Pulse Oximetry [ Bilateral] 11/14/20 11/14/20 11/14/20 06:37 06:41 06:46 Temperature Pulse Rate 85 75 78 Respiratory Rate Blood Pressure 139/90 O2 Sat by Pulse 98 98 Oximetry O2 Sat by Pulse Oximetry [ Bilateral] 11/14/20 11/14/20 11/14/20 06:51 06:56 07:01 Temperature Pulse Rate 78 87 95 H Respiratory Rate Blood Pressure O2 Sat by Pulse 98 98 97 Oximetry O2 Sat by Pulse Oximetry [ Bilateral] 11/14/20 11/14/20 11/14/20 07:06 07:07 07:11 Temperature Pulse Rate 80 77 81 Respiratory Rate Blood Pressure 166/101 O2 Sat by Pulse 99 99 Oximetry O2 Sat by Pulse Oximetry [ Bilateral] 11/14/20 11/14/20 11/14/20 07:16 07:21 07:26 Temperature Pulse Rate 78 76 79 Respiratory Rate Blood Pressure O2 Sat by Pulse 98 98 98 Oximetry O2 Sat by Pulse Oximetry [ Bilateral] 11/14/20 11/14/20 11/14/20 07:31 07:32 07:36 Temperature Pulse Rate 75 81 78 Respiratory Rate Blood Pressure 153/96 O2 Sat by Pulse 98 98 Oximetry O2 Sat by Pulse Oximetry [ Bilateral] 11/14/20 11/14/20 11/14/20 07:37 07:40 07:41 Temperature Pulse Rate 78 81 81 Respiratory Rate Blood Pressure 177/107 164/93 O2 Sat by Pulse 94 99 Oximetry O2 Sat by Pulse Oximetry [ Bilateral] 11/14/20 11/14/20 11/14/20 07:46 07:51 07:56 Temperature 98.2 F Pulse Rate 87 84 83 Respiratory 18 Rate Blood Pressure O2 Sat by Pulse 99 99 99 Oximetry O2 Sat by Pulse 99 Oximetry [ Bilateral] 11/14/20 11/14/20 11/14/20 08:01 08:06 08:11 Temperature Pulse Rate 80 94 H 81 Respiratory Rate Blood Pressure 143/102 O2 Sat by Pulse 98 98 100 Oximetry O2 Sat by Pulse Oximetry [ Bilateral] 11/14/20 11/14/20 11/14/20 08:16 08:21 08:26 Temperature Pulse Rate 79 85 76 Respiratory Rate Blood Pressure O2 Sat by Pulse 100 99 98 Oximetry O2 Sat by Pulse Oximetry [ Bilateral] 11/14/20 11/14/20 11/14/20 08:31 08:36 08:37 Temperature Pulse Rate 76 75 79 Respiratory Rate Blood Pressure 160/89 O2 Sat by Pulse 98 98 Oximetry O2 Sat by Pulse Oximetry [ Bilateral] 11/14/20 11/14/20 11/14/20 08:41 08:46 08:51 Temperature Pulse Rate 72 77 77 Respiratory Rate Blood Pressure O2 Sat by Pulse 98 99 98 Oximetry O2 Sat by Pulse Oximetry [ Bilateral] 11/14/20 11/14/20 11/14/20 08:56 09:01 09:06 Temperature Pulse Rate 75 76 76 Respiratory Rate Blood Pressure O2 Sat by Pulse 98 98 98 Oximetry O2 Sat by Pulse Oximetry [ Bilateral] 11/14/20 11/14/20 11/14/20 09:07 09:11 09:16 Temperature Pulse Rate 76 75 73 Respiratory Rate Blood Pressure 155/92 O2 Sat by Pulse 98 98 Oximetry O2 Sat by Pulse Oximetry [ Bilateral] 11/14/20 11/14/20 11/14/20 09:21 09:26 09:31 Temperature Pulse Rate 74 69 72 Respiratory Rate Blood Pressure O2 Sat by Pulse 98 99 99 Oximetry O2 Sat by Pulse Oximetry [ Bilateral] 11/14/20 11/14/20 11/14/20 09:36 09:37 09:41 Temperature Pulse Rate 75 78 80 Respiratory Rate Blood Pressure 170/99 O2 Sat by Pulse 99 98 Oximetry O2 Sat by Pulse Oximetry [ Bilateral] 11/14/20 11/14/20 11/14/20 09:46 09:48 09:51 Temperature Pulse Rate 96 H 80 88 Respiratory Rate Blood Pressure 151/84 170/90 O2 Sat by Pulse 97 99 Oximetry O2 Sat by Pulse Oximetry [ Bilateral] 11/14/20 11/14/20 11/14/20 09:56 10:01 10:06 Temperature Pulse Rate 81 81 113 H Respiratory Rate Blood Pressure O2 Sat by Pulse 98 100 98 Oximetry O2 Sat by Pulse Oximetry [ Bilateral] 11/14/20 11/14/20 11/14/20 10:07 10:08 10:11 Temperature Pulse Rate 104 H 100 H 86 Respiratory Rate Blood Pressure 191/113 O2 Sat by Pulse 93 98 Oximetry O2 Sat by Pulse Oximetry [ Bilateral] 11/14/20 11/14/20 11/14/20 10:16 10:21 10:24 Temperature Pulse Rate 80 86 81 Respiratory Rate Blood Pressure 148/79 O2 Sat by Pulse 98 96 Oximetry O2 Sat by Pulse Oximetry [ Bilateral] 11/14/20 11/14/20 11/14/20 10:26 10:31 10:36 Temperature Pulse Rate 87 85 87 Respiratory Rate Blood Pressure O2 Sat by Pulse 97 98 98 Oximetry O2 Sat by Pulse Oximetry [ Bilateral] 11/14/20 11/14/20 11/14/20 10:37 10:40 10:41 Temperature Pulse Rate 86 85 Respiratory Rate Blood Pressure 143/72 190/113 O2 Sat by Pulse 98 Oximetry O2 Sat by Pulse Oximetry [ Bilateral] 11/14/20 11/14/20 11/14/20 10:46 10:51 10:56 Temperature Pulse Rate 85 84 83 Respiratory Rate Blood Pressure O2 Sat by Pulse 98 98 98 Oximetry O2 Sat by Pulse Oximetry [ Bilateral] 11/14/20 11/14/20 11/14/20 11:01 11:06 11:07 Temperature Pulse Rate 83 81 83 Respiratory Rate Blood Pressure 131/71 O2 Sat by Pulse 98 98 Oximetry O2 Sat by Pulse Oximetry [ Bilateral] 11/14/20 11/14/20 11/14/20 11:11 11:16 11:21 Temperature Pulse Rate 82 84 85 Respiratory Rate Blood Pressure O2 Sat by Pulse 98 97 97 Oximetry O2 Sat by Pulse Oximetry [ Bilateral] 11/14/20 11/14/20 11/14/20 11:26 11:31 11:36 Temperature Pulse Rate 84 83 106 H Respiratory Rate Blood Pressure O2 Sat by Pulse 97 97 98 Oximetry O2 Sat by Pulse Oximetry [ Bilateral] 11/14/20 11/14/20 11/14/20 11:41 11:42 11:46 Temperature 98.2 F Pulse Rate 87 93 H 90 Respiratory 16 Rate Blood Pressure O2 Sat by Pulse 98 99 98 Oximetry O2 Sat by Pulse Oximetry [ Bilateral] 11/14/20 11/14/20 11/14/20 11:51 11:56 11:57 Temperature Pulse Rate 95 H 99 H 90 Respiratory Rate Blood Pressure 146/95 O2 Sat by Pulse 98 98 Oximetry O2 Sat by Pulse Oximetry [ Bilateral] 11/14/20 11/14/20 11/14/20 12:01 12:06 12:11 Temperature Pulse Rate 88 84 82 Respiratory Rate Blood Pressure O2 Sat by Pulse 99 99 99 Oximetry O2 Sat by Pulse Oximetry [ Bilateral] 11/14/20 11/14/20 11/14/20 12:16 12:17 12:21 Temperature Pulse Rate 82 86 83 Respiratory Rate Blood Pressure 139/73 O2 Sat by Pulse 99 99 Oximetry O2 Sat by Pulse Oximetry [ Bilateral] 11/14/20 11/14/20 11/14/20 12:26 12:31 12:36 Temperature Pulse Rate 80 77 78 Respiratory Rate Blood Pressure O2 Sat by Pulse 99 99 99 Oximetry O2 Sat by Pulse Oximetry [ Bilateral] 11/14/20 11/14/20 11/14/20 12:37 12:41 12:46 Temperature Pulse Rate 77 81 78 Respiratory Rate Blood Pressure 130/65 O2 Sat by Pulse 99 99 Oximetry O2 Sat by Pulse Oximetry [ Bilateral] 11/14/20 11/14/20 11/14/20 12:51 12:56 12:57 Temperature Pulse Rate 94 H 83 85 Respiratory Rate Blood Pressure 133/73 O2 Sat by Pulse 99 97 Oximetry O2 Sat by Pulse Oximetry [ Bilateral] 11/14/20 11/14/20 11/14/20 13:01 13:06 13:11 Temperature Pulse Rate 74 81 81 Respiratory Rate Blood Pressure O2 Sat by Pulse 98 99 99 Oximetry O2 Sat by Pulse Oximetry [ Bilateral] 11/14/20 11/14/20 11/14/20 13:16 13:17 13:21 Temperature Pulse Rate 81 81 82 Respiratory Rate Blood Pressure 146/85 O2 Sat by Pulse 99 99 Oximetry O2 Sat by Pulse Oximetry [ Bilateral] 11/14/20 11/14/20 11/14/20 13:26 13:31 13:36 Temperature Pulse Rate 87 79 77 Respiratory Rate Blood Pressure O2 Sat by Pulse 99 98 98 Oximetry O2 Sat by Pulse Oximetry [ Bilateral] 11/14/20 11/14/20 11/14/20 13:37 13:41 13:46 Temperature Pulse Rate 79 84 79 Respiratory Rate Blood Pressure 143/82 O2 Sat by Pulse 99 97 Oximetry O2 Sat by Pulse Oximetry [ Bilateral] 11/14/20 11/14/20 11/14/20 13:51 13:56 13:57 Temperature Pulse Rate 81 78 82 Respiratory Rate Blood Pressure 132/65 O2 Sat by Pulse 98 98 Oximetry O2 Sat by Pulse Oximetry [ Bilateral] 11/14/20 11/14/20 11/14/20 14:01 14:06 14:11 Temperature Pulse Rate 77 87 85 Respiratory Rate Blood Pressure O2 Sat by Pulse 99 97 98 Oximetry O2 Sat by Pulse Oximetry [ Bilateral] 11/14/20 11/14/20 11/14/20 14:16 14:17 14:21 Temperature Pulse Rate 87 80 83 Respiratory Rate Blood Pressure 130/70 O2 Sat by Pulse 97 98 Oximetry O2 Sat by Pulse Oximetry [ Bilateral] 11/14/20 11/14/20 11/14/20 14:26 14:31 14:36 Temperature Pulse Rate 86 83 78 Respiratory Rate Blood Pressure O2 Sat by Pulse 98 98 96 Oximetry O2 Sat by Pulse Oximetry [ Bilateral] 11/14/20 11/14/20 11/14/20 14:37 14:41 14:46 Temperature Pulse Rate 81 86 77 Respiratory Rate Blood Pressure 143/78 O2 Sat by Pulse 99 99 Oximetry O2 Sat by Pulse Oximetry [ Bilateral] 11/14/20 11/14/20 11/14/20 14:51 14:56 14:57 Temperature Pulse Rate 97 H 91 H 76 Respiratory Rate Blood Pressure 165/100 O2 Sat by Pulse 87 97 Oximetry O2 Sat by Pulse Oximetry [ Bilateral] 11/14/20 11/14/20 11/14/20 14:59 15:01 15:06 Temperature Pulse Rate 84 106 H 88 Respiratory Rate Blood Pressure O2 Sat by Pulse 91 97 92 Oximetry O2 Sat by Pulse Oximetry [ Bilateral] 11/14/20 11/14/20 11/14/20 15:11 15:16 15:17 Temperature 97.6 F Pulse Rate 86 74 72 Respiratory 18 Rate Blood Pressure 177/91 O2 Sat by Pulse 99 98 99 Oximetry O2 Sat by Pulse Oximetry [ Bilateral] 11/14/20 11/14/20 11/14/20 15:19 15:21 15:26 Temperature Pulse Rate 70 75 81 Respiratory Rate Blood Pressure 159/96 O2 Sat by Pulse 99 98 Oximetry O2 Sat by Pulse Oximetry [ Bilateral] 11/14/20 11/14/20 11/14/20 15:27 15:31 15:36 Temperature Pulse Rate 77 69 70 Respiratory Rate Blood Pressure O2 Sat by Pulse 92 99 99 Oximetry O2 Sat by Pulse Oximetry [ Bilateral] 11/14/20 11/14/20 11/14/20 15:38 15:41 15:46 Temperature Pulse Rate 71 71 69 Respiratory Rate Blood Pressure 156/99 O2 Sat by Pulse 99 99 Oximetry O2 Sat by Pulse Oximetry [ Bilateral] 11/14/20 11/14/20 11/14/20 15:51 15:56 15:58 Temperature Pulse Rate 72 74 68 Respiratory Rate Blood Pressure 150/93 O2 Sat by Pulse 99 99 Oximetry O2 Sat by Pulse Oximetry [ Bilateral] 11/14/20 11/14/20 11/14/20 16:01 16:06 16:11 Temperature Pulse Rate 69 67 69 Respiratory Rate Blood Pressure O2 Sat by Pulse 99 99 98 Oximetry O2 Sat by Pulse Oximetry [ Bilateral] 11/14/20 11/14/20 11/14/20 16:16 16:17 16:21 Temperature Pulse Rate 67 66 69 Respiratory Rate Blood Pressure 142/92 O2 Sat by Pulse 99 98 Oximetry O2 Sat by Pulse Oximetry [ Bilateral] 11/14/20 11/14/20 11/14/20 16:26 16:31 16:34 Temperature Pulse Rate 69 70 87 Respiratory Rate Blood Pressure O2 Sat by Pulse 99 99 92 Oximetry O2 Sat by Pulse Oximetry [ Bilateral] 11/14/20 11/14/20 11/14/20 16:36 16:41 16:43 Temperature Pulse Rate 94 H 77 84 Respiratory Rate Blood Pressure 135/102 O2 Sat by Pulse 89 99 Oximetry O2 Sat by Pulse Oximetry [ Bilateral] 11/14/20 11/14/20 11/14/20 16:46 16:48 16:51 Temperature Pulse Rate 72 81 76 Respiratory Rate Blood Pressure 134/92 156/98 O2 Sat by Pulse 100 99 Oximetry O2 Sat by Pulse Oximetry [ Bilateral] 11/14/20 11/14/20 11/14/20 16:52 16:53 16:56 Temperature Pulse Rate 80 100 H 105 H Respiratory Rate Blood Pressure 211/123 O2 Sat by Pulse 94 97 Oximetry O2 Sat by Pulse Oximetry [ Bilateral] 11/14/20 11/14/20 11/14/20 16:59 17:01 17:04 Temperature Pulse Rate 85 91 H 73 Respiratory Rate Blood Pressure 139/93 127/78 O2 Sat by Pulse 99 Oximetry O2 Sat by Pulse Oximetry [ Bilateral] 11/14/20 11/14/20 11/14/20 17:06 17:08 17:11 Temperature Pulse Rate 71 72 84 Respiratory Rate Blood Pressure 121/72 O2 Sat by Pulse 99 100 Oximetry O2 Sat by Pulse Oximetry [ Bilateral] 11/14/20 11/14/20 11/14/20 17:13 17:16 17:21 Temperature Pulse Rate 82 80 71 Respiratory Rate Blood Pressure 117/74 O2 Sat by Pulse 100 100 Oximetry O2 Sat by Pulse Oximetry [ Bilateral] 11/14/20 11/14/20 11/14/20 17:26 17:31 17:36 Temperature Pulse Rate 73 71 72 Respiratory Rate Blood Pressure 116/71 O2 Sat by Pulse 100 100 100 Oximetry O2 Sat by Pulse Oximetry [ Bilateral] 11/14/20 11/14/20 11/14/20 17:41 17:46 17:51 Temperature Pulse Rate 72 70 71 Respiratory Rate Blood Pressure 115/69 O2 Sat by Pulse 100 100 100 Oximetry O2 Sat by Pulse Oximetry [ Bilateral] 11/14/20 11/14/20 11/14/20 17:56 17:57 18:01 Temperature Pulse Rate 69 87 84 Respiratory Rate Blood Pressure O2 Sat by Pulse 100 94 100 Oximetry O2 Sat by Pulse Oximetry [ Bilateral] 11/14/20 11/14/20 11/14/20 18:02 18:06 18:11 Temperature Pulse Rate 75 71 72 Respiratory Rate Blood Pressure 116/75 O2 Sat by Pulse 99 99 Oximetry O2 Sat by Pulse Oximetry [ Bilateral] 11/14/20 18:16 Temperature Pulse Rate 79 Respiratory Rate Blood Pressure 120/73 O2 Sat by Pulse 99 Oximetry O2 Sat by Pulse Oximetry [ Bilateral] - Exam Cardiovascular: Regular rate Lungs: Normal air movement Abdomen: Present: normal appearance, soft Vulva: both: normal Uterus: Present: normal FHR: category 2 Uterine Contraction Monitor Mode: External Cervical Dilatation: 4 Cervical Effacement Percentage: 70 station: 0 Uterine Contraction Pattern: Regular Uterine Tone Measurement Phase: Contraction Uterine Contraction Intensity: Moderate - Labs Labs: Abnormal Labs 11/11/20 11/11/20 11/12/20 16:30 17:56 19:15 [place] % (Auto) 8.1 H Magnesium Urine Creatinine 89.1 H Ur Total Protein 24 Hr 1480.00 H Urine Total Protein 128 H 148 H Coronavirus (PCR) 11/12/20 11/14/20 11/14/20 Unknown 00:36 06:58 [place] % (Auto) Magnesium 5.10 H 6.40 H Urine Creatinine Ur Total Protein 24 Hr Urine Total Protein Coronavirus (PCR) Positive A 11/14/20 11/14/20 14:08 15:25 [place] % (Auto) Magnesium 6.60 H 6.60 H Urine Creatinine Ur Total Protein 24 Hr Urine Total Protein Coronavirus (PCR) Laboratory Results - last 24 hr 11/14/20 11/14/20 11/14/20 00:36 06:58 14:08 WBC RBC Hgb Hct MCV MCH MCHC RDW Plt Count Magnesium 5.10 H 6.40 H 6.60 H 11/14/20 11/14/20 15:25 15:25 WBC 9.3 RBC 4.23 Hgb 13.3 Hct 39.6 MCV 94 MCH 32 MCHC 34 RDW 14.9 Plt Count 257 Magnesium 6.60 H
[2020-11-14] MEDS ORDERED: OXYTOCIN DRIP 30 UNITS/500 ML BAG IV SCH (19:00)
--- NOTE | 2020-11-14 19:59 | Event Note ---
Date: 11/14/20 (Comfortable with epidural) Went to room to explain the plan of care to the patient. Discussed that Pitocin will be started to increase frequency of contractions. Also explained this plan to RN taking care of patient. Both verbalized understanding.
--- NOTE | 2020-11-14 23:03 | Progress Note ---
Assessment and Plan A: 20 y.o. @ 33.2 wks, IOL d/t severe pre eclampsia. Cervical exam /0, unchanged from previous exam. Category 2 monitor tracing. P: Pt being prepped for OR. Pre Op meds ordered. 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 Subjective - Subjective Date of service: 11/14/20 (No cervical change.) Principal diagnosis: IUP @33.2wks, PreE with severe features, COVID+ Patient reports: movement normal, no new complaints, no loss of fluid, no vaginal bleeding Objective - Vital Signs Vital Signs: Vital Signs - 12hr 11/14/20 11/14/20 11/14/20 11:01 11:06 11:07 Temperature Pulse Rate 83 81 83 Respiratory Rate Blood Pressure 131/71 O2 Sat by Pulse 98 98 Oximetry O2 Sat by Pulse Oximetry [ Bilateral] 11/14/20 11/14/20 11/14/20 11:11 11:16 11:21 Temperature Pulse Rate 82 84 85 Respiratory Rate Blood Pressure O2 Sat by Pulse 98 97 97 Oximetry O2 Sat by Pulse Oximetry [ Bilateral] 11/14/20 11/14/20 11/14/20 11:26 11:31 11:36 Temperature Pulse Rate 84 83 106 H Respiratory Rate Blood Pressure O2 Sat by Pulse 97 97 98 Oximetry O2 Sat by Pulse Oximetry [ Bilateral] 11/14/20 11/14/20 11/14/20 11:41 11:42 11:46 Temperature 98.2 F Pulse Rate 87 93 H 90 Respiratory 16 Rate Blood Pressure O2 Sat by Pulse 98 99 98 Oximetry O2 Sat by Pulse Oximetry [ Bilateral] 11/14/20 11/14/20 11/14/20 11:51 11:56 11:57 Temperature Pulse Rate 95 H 99 H 90 Respiratory Rate Blood Pressure 146/95 O2 Sat by Pulse 98 98 Oximetry O2 Sat by Pulse Oximetry [ Bilateral] 11/14/20 11/14/20 11/14/20 12:01 12:06 12:11 Temperature Pulse Rate 88 84 82 Respiratory Rate Blood Pressure O2 Sat by Pulse 99 99 99 Oximetry O2 Sat by Pulse Oximetry [ Bilateral] 11/14/20 11/14/20 11/14/20 12:16 12:17 12:21 Temperature Pulse Rate 82 86 83 Respiratory Rate Blood Pressure 139/73 O2 Sat by Pulse 99 99 Oximetry O2 Sat by Pulse Oximetry [ Bilateral] 11/14/20 11/14/20 11/14/20 12:26 12:31 12:36 Temperature Pulse Rate 80 77 78 Respiratory Rate Blood Pressure O2 Sat by Pulse 99 99 99 Oximetry O2 Sat by Pulse Oximetry [ Bilateral] 11/14/20 11/14/20 11/14/20 12:37 12:41 12:46 Temperature Pulse Rate 77 81 78 Respiratory Rate Blood Pressure 130/65 O2 Sat by Pulse 99 99 Oximetry O2 Sat by Pulse Oximetry [ Bilateral] 11/14/20 11/14/20 11/14/20 12:51 12:56 12:57 Temperature Pulse Rate 94 H 83 85 Respiratory Rate Blood Pressure 133/73 O2 Sat by Pulse 99 97 Oximetry O2 Sat by Pulse Oximetry [ Bilateral] 11/14/20 11/14/20 11/14/20 13:01 13:06 13:11 Temperature Pulse Rate 74 81 81 Respiratory Rate Blood Pressure O2 Sat by Pulse 98 99 99 Oximetry O2 Sat by Pulse Oximetry [ Bilateral] 11/14/20 11/14/20 11/14/20 13:16 13:17 13:21 Temperature Pulse Rate 81 81 82 Respiratory Rate Blood Pressure 146/85 O2 Sat by Pulse 99 99 Oximetry O2 Sat by Pulse Oximetry [ Bilateral] 11/14/20 11/14/20 11/14/20 13:26 13:31 13:36 Temperature Pulse Rate 87 79 77 Respiratory Rate Blood Pressure O2 Sat by Pulse 99 98 98 Oximetry O2 Sat by Pulse Oximetry [ Bilateral] 11/14/20 11/14/20 11/14/20 13:37 13:41 13:46 Temperature Pulse Rate 79 84 79 Respiratory Rate Blood Pressure 143/82 O2 Sat by Pulse 99 97 Oximetry O2 Sat by Pulse Oximetry [ Bilateral] 11/14/20 11/14/20 11/14/20 13:51 13:56 13:57 Temperature Pulse Rate 81 78 82 Respiratory Rate Blood Pressure 132/65 O2 Sat by Pulse 98 98 Oximetry O2 Sat by Pulse Oximetry [ Bilateral] 11/14/20 11/14/20 11/14/20 14:01 14:06 14:11 Temperature Pulse Rate 77 87 85 Respiratory Rate Blood Pressure O2 Sat by Pulse 99 97 98 Oximetry O2 Sat by Pulse Oximetry [ Bilateral] 11/14/20 11/14/2011/14/21 14:16 14:17 14:21 Temperature Pulse Rate 87 80 83 Respiratory Rate Blood Pressure 130/70 O2 Sat by Pulse 97 98 Oximetry O2 Sat by Pulse Oximetry [ Bilateral] 11/14/20 11/14/20 11/14/20 14:26 14:31 14:36 Temperature Pulse Rate 86 83 78 Respiratory Rate Blood Pressure O2 Sat by Pulse 98 98 96 Oximetry O2 Sat by Pulse Oximetry [ Bilateral] 11/14/20 11/14/20 11/14/20 14:37 14:41 14:46 Temperature Pulse Rate 81 86 77 Respiratory Rate Blood Pressure 143/78 O2 Sat by Pulse 99 99 Oximetry O2 Sat by Pulse Oximetry [ Bilateral] 11/14/20 11/14/20 11/14/20 14:51 14:56 14:57 Temperature Pulse Rate 97 H 91 H 76 Respiratory Rate Blood Pressure 165/100 O2 Sat by Pulse 87 97 Oximetry O2 Sat by Pulse Oximetry [ Bilateral] 11/14/20 11/14/20 11/14/20 14:59 15:01 15:06 Temperature Pulse Rate 84 106 H 88 Respiratory Rate Blood Pressure O2 Sat by Pulse 91 97 92 Oximetry O2 Sat by Pulse Oximetry [ Bilateral] 11/14/20 11/14/20 11/14/20 15:11 15:16 15:17 Temperature 97.6 F Pulse Rate 86 74 72 Respiratory 18 Rate Blood Pressure 177/91 O2 Sat by Pulse 99 98 99 Oximetry O2 Sat by Pulse Oximetry [ Bilateral] 11/14/20 11/14/20 11/14/20 15:19 15:21 15:26 Temperature Pulse Rate 70 75 81 Respiratory Rate Blood Pressure 159/96 O2 Sat by Pulse 99 98 Oximetry O2 Sat by Pulse Oximetry [ Bilateral] 11/14/20 11/14/20 11/14/20 15:27 15:31 15:36 Temperature Pulse Rate 77 69 70 Respiratory Rate Blood Pressure O2 Sat by Pulse 92 99 99 Oximetry O2 Sat by Pulse Oximetry [ Bilateral] 11/14/20 11/14/20 11/14/20 15:38 15:41 15:46 Temperature Pulse Rate 71 71 69 Respiratory Rate Blood Pressure 156/99 O2 Sat by Pulse 99 99 Oximetry O2 Sat by Pulse Oximetry [ Bilateral] 10/04/21 10/04/21 10/04/21 15:51 15:56 15:58 Temperature Pulse Rate 72 74 68 Respiratory Rate Blood Pressure 150/93 O2 Sat by Pulse 99 99 Oximetry O2 Sat by Pulse Oximetry [ Bilateral] 11/14/20 11/14/20 11/14/20 16:01 16:06 16:11 Temperature Pulse Rate 69 67 69 Respiratory Rate Blood Pressure O2 Sat by Pulse 99 99 98 Oximetry O2 Sat by Pulse Oximetry [ Bilateral] 11/14/20 11/14/20 11/14/20 16:16 16:17 16:21 Temperature Pulse Rate 67 66 69 Respiratory Rate Blood Pressure 142/92 O2 Sat by Pulse 99 98 Oximetry O2 Sat by Pulse Oximetry [ Bilateral] 11/14/20 11/14/20 11/14/20 16:26 16:31 16:34 Temperature Pulse Rate 69 70 87 Respiratory Rate Blood Pressure O2 Sat by Pulse 99 99 92 Oximetry O2 Sat by Pulse Oximetry [ Bilateral] 11/14/20 11/14/20 11/14/20 16:36 16:41 16:43 Temperature Pulse Rate 94 H 77 84 Respiratory Rate Blood Pressure 135/102 O2 Sat by Pulse 89 99 Oximetry O2 Sat by Pulse Oximetry [ Bilateral] 11/14/20 11/14/20 11/14/20 16:46 16:48 16:51 Temperature Pulse Rate 72 81 76 Respiratory Rate Blood Pressure 134/92 156/98 O2 Sat by Pulse 100 99 Oximetry O2 Sat by Pulse Oximetry [ Bilateral] 11/14/20 11/14/20 11/14/20 16:52 16:53 16:56 Temperature Pulse Rate 80 100 H 105 H Respiratory Rate Blood Pressure 211/123 O2 Sat by Pulse 94 97 Oximetry O2 Sat by Pulse Oximetry [ Bilateral] 11/14/20 11/14/20 11/14/20 16:59 17:01 17:04 Temperature Pulse Rate 85 91 H 73 Respiratory Rate Blood Pressure 139/93 127/78 O2 Sat by Pulse 99 Oximetry O2 Sat by Pulse Oximetry [ Bilateral] 11/14/20 11/14/20 11/14/20 17:06 17:08 17:11 Temperature Pulse Rate 71 72 84 Respiratory Rate Blood Pressure 121/72 O2 Sat by Pulse 99 100 Oximetry O2 Sat by Pulse Oximetry [ Bilateral] 11/14/20 11/14/20 11/14/20 17:13 17:16 17:21 Temperature Pulse Rate 82 80 71 Respiratory Rate Blood Pressure 117/74 O2 Sat by Pulse 100 100 Oximetry O2 Sat by Pulse Oximetry [ Bilateral] 11/14/20 11/14/20 11/14/20 17:26 17:31 17:36 Temperature Pulse Rate 73 71 72 Respiratory Rate Blood Pressure 116/71 O2 Sat by Pulse 100 100 100 Oximetry O2 Sat by Pulse Oximetry [ Bilateral] 11/14/20 11/14/20 11/14/20 17:41 17:46 17:51 Temperature Pulse Rate 72 70 71 Respiratory Rate Blood Pressure 115/69 O2 Sat by Pulse 100 100 100 Oximetry O2 Sat by Pulse Oximetry [ Bilateral] 11/14/20 11/14/20 11/14/20 17:56 17:57 18:01 Temperature Pulse Rate 69 87 84 Respiratory Rate Blood Pressure O2 Sat by Pulse 100 94 100 Oximetry O2 Sat by Pulse Oximetry [ Bilateral] 11/14/20 11/14/20 11/14/20 18:02 18:06 18:11 Temperature Pulse Rate 75 71 72 Respiratory Rate Blood Pressure 116/75 O2 Sat by Pulse 99 99 Oximetry O2 Sat by Pulse Oximetry [ Bilateral] 11/14/20 11/14/20 11/14/20 18:16 18:21 18:23 Temperature Pulse Rate 79 72 77 Respiratory Rate Blood Pressure 120/73 O2 Sat by Pulse 99 100 90 Oximetry O2 Sat by Pulse Oximetry [ Bilateral] 11/14/20 11/14/20 11/14/20 18:26 18:31 18:36 Temperature Pulse Rate 77 85 73 Respiratory Rate Blood Pressure 127/75 O2 Sat by Pulse 97 97 98 Oximetry O2 Sat by Pulse Oximetry [ Bilateral] 11/14/20 11/14/20 11/14/20 18:41 18:46 18:51 Temperature Pulse Rate 70 78 69 Respiratory Rate Blood Pressure 115/68 O2 Sat by Pulse 98 98 99 Oximetry O2 Sat by Pulse Oximetry [ Bilateral] 11/14/20 11/14/20 11/14/20 18:56 19:01 19:06 Temperature Pulse Rate 69 70 83 Respiratory Rate Blood Pressure 118/73 O2 Sat by Pulse 98 98 99 Oximetry O2 Sat by Pulse Oximetry [ Bilateral] 11/14/20 11/14/20 11/14/20 19:11 19:16 19:21 Temperature Pulse Rate 68 72 70 Respiratory Rate Blood Pressure 123/79 O2 Sat by Pulse 99 99 98 Oximetry O2 Sat by Pulse Oximetry [ Bilateral] 11/14/20 11/14/20 11/14/20 19:26 19:31 19:36 Temperature Pulse Rate 72 81 72 Respiratory Rate Blood Pressure 132/77 O2 Sat by Pulse 99 98 98 Oximetry O2 Sat by Pulse Oximetry [ Bilateral] 11/14/20 11/14/20 11/14/20 19:41 19:46 19:51 Temperature Pulse Rate 71 69 69 Respiratory Rate Blood Pressure 128/83 O2 Sat by Pulse 99 99 99 Oximetry O2 Sat by Pulse 99 Oximetry [ Bilateral] 11/14/20 11/14/20 11/14/20 19:56 20:01 20:06 Temperature Pulse Rate 77 82 75 Respiratory Rate Blood Pressure O2 Sat by Pulse 98 99 100 Oximetry O2 Sat by Pulse Oximetry [ Bilateral] 11/14/20 11/14/20 11/14/20 20:11 20:16 20:17 Temperature Pulse Rate 76 71 72 Respiratory Rate Blood Pressure 127/85 O2 Sat by Pulse 100 99 Oximetry O2 Sat by Pulse Oximetry [ Bilateral] 11/14/20 11/14/20 11/14/20 20:21 20:26 20:31 Temperature Pulse Rate 76 72 74 Respiratory Rate Blood Pressure O2 Sat by Pulse 98 99 99 Oximetry O2 Sat by Pulse Oximetry [ Bilateral] 11/14/20 11/14/20 11/14/20 20:36 20:41 20:46 Temperature Pulse Rate 76 71 75 Respiratory Rate Blood Pressure O2 Sat by Pulse 100 100 100 Oximetry O2 Sat by Pulse Oximetry [ Bilateral] 11/14/20 11/14/20 11/14/20 20:48 20:51 20:56 Temperature Pulse Rate 64 67 65 Respiratory Rate Blood Pressure 128/84 O2 Sat by Pulse 100 100 Oximetry O2 Sat by Pulse Oximetry [ Bilateral] 11/14/20 11/14/20 11/14/20 21:00 21:01 21:06 Temperature Pulse Rate 71 69 64 Respiratory Rate Blood Pressure 115/77 O2 Sat by Pulse 99 99 Oximetry O2 Sat by Pulse Oximetry [ Bilateral] 11/14/20 11/14/20 11/14/20 21:11 21:16 21:21 Temperature Pulse Rate 79 67 66 Respiratory Rate Blood Pressure O2 Sat by Pulse 98 99 97 Oximetry O2 Sat by Pulse Oximetry [ Bilateral] 11/14/20 11/14/20 11/14/20 21:26 21:31 21:36 Temperature Pulse Rate 65 78 80 Respiratory Rate Blood Pressure O2 Sat by Pulse 98 100 97 Oximetry O2 Sat by Pulse Oximetry [ Bilateral] 11/14/20 11/14/20 11/14/20 21:41 21:46 21:51 Temperature Pulse Rate 66 69 78 Respiratory Rate Blood Pressure 119/77 O2 Sat by Pulse 98 98 99 Oximetry O2 Sat by Pulse Oximetry [ Bilateral] 11/14/20 11/14/20 11/14/20 21:56 22:00 22:01 Temperature Pulse Rate 67 65 67 Respiratory Rate Blood Pressure 120/72 O2 Sat by Pulse 99 99 Oximetry O2 Sat by Pulse Oximetry [ Bilateral] 11/14/20 11/14/20 11/14/20 22:06 22:11 22:16 Temperature Pulse Rate 65 66 72 Respiratory Rate Blood Pressure O2 Sat by Pulse 100 100 99 Oximetry O2 Sat by Pulse Oximetry [ Bilateral] 11/14/20 11/14/20 11/14/20 22:21 22:26 22:30 Temperature Pulse Rate 71 71 69 Respiratory Rate Blood Pressure 116/72 O2 Sat by Pulse 100 100 Oximetry O2 Sat by Pulse Oximetry [ Bilateral] 11/14/20 11/14/20 11/14/20 22:31 22:36 22:41 Temperature Pulse Rate 69 65 69 Respiratory Rate Blood Pressure O2 Sat by Pulse 100 99 99 Oximetry O2 Sat by Pulse Oximetry [ Bilateral] 11/14/20 11/14/20 11/14/20 22:46 22:51 22:56 Temperature Pulse Rate 73 80 79 Respiratory Rate Blood Pressure O2 Sat by Pulse 99 98 97 Oximetry O2 Sat by Pulse Oximetry [ Bilateral] - Exam Narrative Exam: Cervical exam remains unchanged since last exam at 6pm: /0. Dark red blood noted on exam glove. Category 2 strip: minimal variability with absent variability noted at times. Discussed with patient the need for a d/t intolerance to labor, category 2 tracing, and unchanged cervical exam since 6pm. Discussed patient with Dr. Mcmahon. Will proceed with a . Pt agrees to this plan at this time. Pre op med orders placed. Breasts: deferred Cardiovascular: Regular rate Lungs: Normal air movement Abdomen: Present: normal appearance, soft Vulva: both: normal Uterus: Present: normal FHR: category 2 (Minimal to absent variability noted. ) Uterine Contraction Monitor Mode: External Cervical Dilatation: 4 Cervical Effacement Percentage: 70 station: 0 Uterine Contraction Pattern: Irregular Uterine Tone Measurement Phase: Resting Uterine Contraction Intensity: Moderate - Labs Labs: Abnormal Labs 11/11/20 11/11/20 11/12/20 16:30 17:56 19:15 [place] % (Auto) 8.1 H Magnesium Urine Creatinine 89.1 H Ur Total Protein 24 Hr 1480.00 H Urine Total Protein 128 H 148 H Coronavirus (PCR) 11/12/20 11/14/20 11/14/20 Unknown 00:36 06:58 [place] % (Auto) Magnesium 5.10 H 6.40 H Urine Creatinine Ur Total Protein 24 Hr Urine Total Protein Coronavirus (PCR) Positive A 11/14/20 11/14/20 11/14/20 14:08 15:25 21:26 [place] % (Auto) Magnesium 6.60 H 6.60 H 6.90 H Urine Creatinine Ur Total Protein 24 Hr Urine Total Protein Coronavirus (PCR) Laboratory Results - last 24 hr 11/14/20 11/14/20 11/14/20 00:36 06:58 14:08 WBC RBC Hgb Hct MCV MCH MCHC RDW Plt Count Magnesium 5.10 H 6.40 H 6.60 H 11/14/20 11/14/20 11/14/20 15:25 15:25 21:26 WBC 9.3 RBC 4.23 Hgb 13.3 Hct 39.6 MCV 94 MCH 32 MCHC 34 RDW 14.9 Plt Count 257 Magnesium 6.60 H 6.90 H
[2020-11-14] MEDS ORDERED: FAMOTIDINE 20 MG/2 ML INJ IV ONE (23:13)
[2020-11-14] MEDS ORDERED: BICITRA ORAL LIQD 30ML PO ONE (23:23)
[2020-11-14] MEDS ORDERED: METOCLOPRAMIDE 10 MG/2 ML INJ IV ONE (23:23)
--- NOTE | 2020-11-14 23:27 | Event Note ---
Date: 11/14/20 As per director clinical data pt has not had cervical change in several hours and has had late decels when pitocin was started. Decision made at this time to proceed with operative delivery via c/s. All risk, benefits, and alternatives were d/w pt and questions were addressed and answered. Consents signed an placed on the chart.
[2020-11-14] MEDS ORDERED: ceFAZolin/Water 2 GM/20 ML 2 GM/20 ML SYRINGE IV NR (23:45)
[2020-11-15] MEDS ORDERED: SODIUM CHLORIDE 0.9% IRR 1,500 ML BOTTLE IR ONE (00:50)
[2020-11-15] MEDS ORDERED: ceFAZolin/STERILE WATER 2 GM/20 ML SYRINGE IV ONE (00:50)
[2020-11-15] MEDS ORDERED: WATER FOR IRRIG STERILE 1,500 ML BOTTLE IR ONE (00:50)
[2020-11-15] MEDS ORDERED: MORPHINE PF 10MG/10 ML AMPULE ONE (01:05)
[2020-11-15] MEDS ORDERED: LIDOCAINE 2%/EPINEPHRINE 1:200,000 VIAL (20 ML) INFILTRATI ONE (01:08)
[2020-11-15] MEDS ORDERED: KETOROLAC 30 MG/1 ML INJ ONE (01:08)
[2020-11-15] MEDS ORDERED: SODIUM BICARB 8.4% 50 MEQ/50 ML VIAL IV ONE (01:08)
[2020-11-15] MEDS ORDERED: LACTATED RINGERS 1,000 ML ONE (01:28)
[2020-11-15] MEDS ORDERED: OXYTOCIN 10 UNIT/1 ML INJ ONE (01:28)
--- NOTE | 2020-11-15 02:04 | Operative Report ---
Operative Report Operative Report: Date of procedure: 11/15/2020 Pre-operative diagnosis: Intrauterine at 33 weeks 4 days Intrauterine growth restriction Severe preeclampsia intolerance to labor Failure to progress Post-operative diagnosis: Same Procedure name(s): Primary low transverse section via Pfannenstiel skin incision Surgeon: Dr. Mcmahon Barrel Handler: [id number] Anesthesia: Epidural QBL: 552 mL Urine output: 50 mL of clear urine out at end the procedure Fluids: 500 mL Findings: Liveborn female weight 2 pounds 9 ounces Apgars of 8 and 8 at 1 and 5 minutes Grossly normal fallopian tubes and ovaries bilaterally Normal uterus Indications: Patient presents from maternal- medicine office for evaluation for preeclampsia with a diagnosis of intrauterine growth restriction. Patient was given a diagnosis of severe preeclampsia and underwent induction of labor. Labor progressed to approximately 4 cm without any progression after several hours and inability to augment labor due to intolerance to labor. Decision made at this time to proceed with operative delivery via section. All risks benefits and alternatives were discussed with the patient. Consents were signed and placed on the chart. Procedure: Patient was taking to the operating room. Patient was then prepped and draped in sterile fashion after anesthesia was found to be adequate. A low transverse skin incision was made with the scalpel and carried down to the underlying layer of fascia with the Bovie. The fascia was then incised in the midline and this incision was extended bilaterally with the Bovie. The superior aspect of the fascia was grasped with Lexis clamps tented upward and dissected off of the anterior rectus muscles with the scalpel. In similar fashion the inferior aspect of the fascia was grasped with Lexis clamps tented upward and dissected off of the anterior rectus muscles. The rectus muscles were then bluntly divided in the midline. The peritoneum was identified and entered into sharply. The bladder blade was placed. The bladder flap was created using the Metzenbaum scissors. The bladder blade was replaced. A lower transverse uterine incision was made with the scalpel and extended bilaterally with the bandage scissors. Artificial rupture of membranes was performed yielding [clear amniotic fluid]. The 's head was then delivered atraumatically. The anterior shoulder and rest of delivered without difficulty. The umbilical cord was clamped x2. The cord was cut. The infant was then placed in sterile bassinet. [The cord blood was collected.] The placenta was manually extracted in its entirety. The uterus was exteriorized and cleared of all clots and debris. The uterine incision was closed using 0 Vicryl in a running locking fashion. A second imbricating layer of the same suture was then created. The posterior cul-de-sac was copiously irrigated. The uterus was returned to the abdomen. The gutters were also irrigated. The anterior rectus muscles were reapproximated using 3-0 Vicryl. The anterior rectus fascia was reapproximated using 0 Vicryl in a running fashion. The subcuticular fat was reapproximated using 2-0 Vicryl in a running fashion. The skin was reapproximated with 4-0 Monocryl in a subcuticular stitch. The patient tolerated the procedure well. Sponge lap and needle counts were all correct x3. Patient was taken to the recovery room awake and in stable condition.
[2020-11-15] MEDS ORDERED: KETOROLAC 30 MG/1 ML INJ IV PRN (02:05)
[2020-11-15] MEDS ORDERED: NALOXONE 0.4 MG/1 ML INJ IV PRN (02:05)
[2020-11-15] MEDS ORDERED: WITCH HAZEL/ GLYCERIN PAD TP PRN (02:05)
[2020-11-15] MEDS ORDERED: LANOLIN/ZINC/DIMETHICONE (LANSINOH) 7 GM TP PRN (02:05)
[2020-11-15] MEDS ORDERED: MORPHINE 4 MG/1 ML INJ IV PRN (02:05)
[2020-11-15] MEDS: MAGNESIUM SULFATE 40GM/1000ML 40 GM/1,000 ML BAG IV SCH ×2 (02:15→21:57)
[2020-11-15] MEDS: ceFAZolin/NS 1 GM/50 ML 1 GM/50 ML BAG IV SCH ×2 (07:37→15:53)
[2020-11-15] MEDS: hydrALAZINE 20 MG/1 ML INJ IV PRN ×2 (08:35→09:30)
--- NOTE | 2020-11-15 08:35 | Progress Note ---
Assessment and Plan patient resting w/o complaints. dressing D&I, urine output adequate. - Patient Problems (1) Pre-eclampsia Current Visit: Yes Status: Acute Qualifiers: Trimester: third trimester Qualified Code(s): O14.93 - Unspecified pre- eclampsia, third trimester Plan to address problem: Cont' mag sulfate x24hrs (down @ 0200) Mag levels strict I&O Labetalol 200mg PO BID (2) COVID-19 Current Visit: Yes Status: Acute (3) delivery delivered Current Visit: Yes Status: Acute Plan to address problem: continue postop pathway Advance diet and activity as tolerated Subjective - Subjective Date of service: 11/15/20 Principal diagnosis: postop day 0 s/p primary c/s; pre-e and COVID Interval history: EDC Calculations by LMP: 12/31/2020 Past History : 4 Term Births: 0 Premature Births: 0 Living Children: 0 Para: 0 Mult. Births: 0 Prev : 0 Aborta: 3 Elect. Ab: 0 Spont. Ab: 2 Ectopics: 1 # 1 Delivery date: 2014 Weeks Gestation: 5 Delivery type: SAB Comments: No D&C # 2 Delivery date: 2016 Delivery type: SAB Comments: No D&C # 3 Delivery date: 10/2019 Delivery type: ectopic Delivery location: [facility] Comments: Lsc Left salpingectomy Past Medical History: Asthma Past Surgical History: Tonsillectomy Lsc Left salpingectomy Family History Summary: Other Family Member - Has No Family History of Ovarvian Cancer - Entered On: 08/01/2020 Other Family Member - Has No Family History of Breast Cancer - Entered On: 08/01/2020 Other Family Member - Has Family History Colon Cancer - Entered On: 08/01/2020 Social History: Marital Status: Single Children: 0 Occupation: Unemployed Smoking History: Patient is a former smoker. 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 Infection History Hx of STD: none HIV Risk Eval: no Hepatitis B Risk Eval: low risk Partner hx. of genital herpes: no Genetic History Congenital Heart Defect: Mom: no Dad: no Juju Disease: Mom: no Dad: no Thalassemia Mom: no Dad: no Neural Tube Defect Mom: no Dad: no Down's Syndrome Mom: no Dad: no Luis-Sachs Mom: no Dad: no Sickle Cell Disease/Trait Mom: no Dad: no Hemophilia Mom: no Dad: no Muscular Dystrophy Mom: no Dad: no Cystic Fibrosis Mom: no Dad: no Thayer Chorea Mom: no Dad: no Mental Retardation Mom: no Dad: no Fragile X Mom: no Dad: no Other Genetic/Chromosomal Disorder Mom: no Dad: no Child w/other defect Mom: no Dad: no Enviromental Exposures Xray Exposure: no Medication, drug, or alcohol use since LMP: no Chemical/Other Exposure: no Exposure to Cat Liter: no Active Medications (reviewed today): None Current Allergies (reviewed today): No known allergies Patient reports: pain well controlled, no nauseated : in NICU Objective - Vital Signs Latest vital signs: Vital Signs Temp Pulse Resp BP BP Pulse Ox Pulse Ox 11/15/20 08:27 74 95 11/15/20 08:23 65 168/95 11/15/20 08:22 75 96 11/15/20 08:21 61 92 11/15/20 08:17 79 96 11/15/20 08:12 75 96 11/15/20 08:07 73 97 11/15/20 08:02 84 97 11/15/20 07:57 77 97 11/15/20 07:53 65 149/93 11/15/20 07:52 74 95 11/15/20 07:47 75 95 11/15/20 07:46 72 94 11/15/20 07:42 76 97 11/15/20 07:37 74 96 11/15/20 07:36 74 93 11/15/20 07:33 98.3 F 81 14 145/89 145/89 97 11/15/20 07:32 68 97 11/15/20 07:30 97 11/15/20 07:27 65 95 11/15/20 07:23 62 145/85 11/15/20 07:22 63 96 11/15/20 07:17 69 97 11/15/20 07:12 65 97 11/15/20 07:07 66 97 11/15/20 07:02 67 97 11/15/20 06:57 69 98 11/15/20 06:53 67 138/85 11/15/20 06:52 69 97 11/15/20 06:47 67 97 11/15/20 06:42 63 97 11/15/20 06:37 62 97 11/15/20 06:32 69 98 11/15/20 06:27 72 147/94 99 11/15/20 06:22 64 156/100 99 11/15/20 06:17 75 99 11/15/20 06:12 67 99 11/15/20 06:07 65 152/92 99 11/15/20 06:02 60 98 11/15/20 05:57 68 99 11/15/20 05:53 66 169/95 11/15/20 05:52 70 99 11/15/20 05:47 80 99 11/15/20 05:42 63 98 11/15/20 05:37 76 98 11/15/20 05:32 64 97 11/15/20 05:27 64 99 11/15/20 05:23 65 143/87 11/15/20 05:22 70 98 11/15/20 05:17 70 97 11/15/20 05:12 60 97 11/15/20 05:07 62 98 11/15/20 05:02 61 97 11/15/20 04:57 61 97 11/15/20 04:53 61 126/78 11/15/20 04:52 59 L 97 11/15/20 04:47 66 97 11/15/20 04:42 61 97 11/15/20 04:37 63 97 11/15/20 04:32 63 97 05 04:27 65 97 05 04:23 61 123/75 11/15/20 04:22 63 97 11/15/20 04:17 65 97 11/15/20 04:12 65 97 11/15/20 04:07 62 97 11/15/20 04:02 65 98 05 03:57 62 98 05 03:53 58 L 122/75 11/15/20 03:52 66 98 11/15/20 03:47 60 98 11/15/20 03:42 67 98 11/15/20 03:37 59 L 98 11/15/20 03:32 73 100 11/15/20 03:27 70 99 11/15/20 03:22 68 129/76 100 11/15/20 03:17 70 135/73 100 11/15/20 03:13 71 167/101 88 11/15/20 03:12 73 98 11/15/20 03:07 65 131/85 99 11/15/20 03:05 65 16 131/85 99 11/15/20 03:02 66 125/76 99 11/15/20 03:00 66 16 125/76 99 11/15/20 02:57 72 123/75 98 11/15/20 02:52 74 126/77 99 11/15/20 02:47 68 125/75 100 11/15/20 02:45 75 125/75 99 11/15/20 02:42 72 124/76 100 11/15/20 02:37 74 124/76 99 11/15/20 02:32 75 121/74 99 11/15/20 02:30 75 15 121/71 99 11/15/20 02:27 68 126/76 99 11/15/20 02:22 73 127/76 99 11/15/20 02:20 80 16 132/78 99 11/15/20 02:17 74 132/78 99 11/15/20 02:15 75 15 129/79 99 11/15/20 02:12 73 129/79 99 11/15/20 02:10 75 16 123/75 100 11/15/20 02:07 74 123/75 100 11/15/20 02:04 98.1 F 11/15/20 00:41 78 99 11/15/20 00:36 83 98 11/15/20 00:31 78 98 11/15/20 00:30 77 121/70 11/15/20 00:26 77 99 11/15/20 00:21 76 98 11/15/20 00:16 72 99 11/15/20 00:11 76 98 11/15/20 00:06 75 98 11/15/20 00:01 76 99 11/15/20 00:00 72 122/70 11/14/20 23:56 78 98 11/14/20 23:51 85 100 11/14/20 23:46 95 H 99 11/14/20 23:41 89 99 11/14/20 23:36 75 100 11/14/20 23:34 87 11/14/20 23:32 90 122/79 11/14/20 23:31 87 98 11/14/20 23:26 80 99 11/14/20 23:21 70 98 11/14/20 23:16 84 100 11/14/20 23:11 76 99 11/14/20 23:06 81 99 11/14/20 23:02 75 108/64 11/14/20 23:01 77 99 11/14/20 22:56 79 97 11/14/20 22:51 80 98 11/14/20 22:46 73 99 11/14/20 22:41 69 99 11/14/20 22:36 65 99 11/14/20 22:31 69 100 11/14/20 22:30 69 116/72 11/14/20 22:26 71 100 11/14/20 22:21 71 100 11/14/20 22:16 72 99 11/14/20 22:11 66 100 11/14/20 22:06 65 100 11/14/20 22:01 67 99 11/14/20 22:00 65 119/72 11/14/20 21:56 67 99 11/14/20 21:51 78 99 11/14/20 21:46 69 119/77 98 11/14/20 21:41 66 98 11/14/20 21:36 80 97 11/14/20 21:31 78 100 11/14/20 21:26 65 98 11/14/20 21:21 66 97 11/14/20 21:16 67 99 11/14/20 21:11 79 98 11/14/20 21:06 64 99 11/14/20 21:01 69 99 11/14/20 21:00 71 115/77 11/14/20 20:56 65 100 11/14/20 20:51 67 100 11/14/20 20:48 64 128/84 11/14/20 20:46 75 100 11/14/20 20:41 71 100 11/14/20 20:36 76 100 11/14/20 20:31 74 99 11/14/20 20:26 72 99 11/14/20 20:21 76 98 11/14/20 20:17 72 127/85 11/14/20 20:16 71 99 11/14/20 20:11 76 100 11/14/20 20:06 75 100 11/14/20 20:01 82 99 11/14/20 19:56 77 98 11/14/20 19:51 69 99 11/14/20 19:46 69 128/83 99 11/14/20 19:41 71 99 99 11/14/20 19:36 72 98 11/14/20 19:31 81 132/77 98 11/14/20 19:26 72 99 11/14/20 19:21 70 98 11/14/20 19:16 72 123/79 99 11/14/20 19:11 68 99 11/14/20 19:06 83 99 11/14/20 19:01 70 118/73 98 11/14/20 18:56 69 98 11/14/20 18:51 69 99 11/14/20 18:46 78 115/68 98 11/14/20 18:41 70 98 11/14/20 18:36 73 98 11/14/20 18:31 85 127/75 97 11/14/20 18:26 77 97 11/14/20 18:23 77 90 11/14/20 18:21 72 100 11/14/20 18:16 79 120/73 99 11/14/20 18:11 72 99 11/14/20 18:06 71 99 11/14/20 18:02 75 116/75 11/14/20 18:01 84 100 11/14/20 17:57 87 94 11/14/20 17:56 69 100 11/14/20 17:51 71 100 11/14/20 17:46 70 115/69 100 11/14/20 17:41 72 100 11/14/20 17:36 72 100 11/14/20 17:31 71 116/71 100 11/14/20 17:26 73 100 11/14/20 17:21 71 100 11/14/20 17:16 80 100 11/14/20 17:13 82 117/74 11/14/20 17:11 84 100 11/14/20 17:08 72 121/72 11/14/20 17:06 71 99 11/14/20 17:04 73 127/78 11/14/20 17:01 91 H 99 11/14/20 16:59 85 139/93 11/14/20 16:56 105 H 97 11/14/20 16:53 100 H 211/123 11/14/20 16:52 80 94 11/14/20 16:51 76 156/98 99 11/14/20 16:48 81 134/92 11/14/20 16:46 72 100 11/14/20 16:43 84 135/102 11/14/20 16:41 77 99 11/14/20 16:36 94 H 89 11/14/20 16:34 87 92 11/14/20 16:31 70 99 11/14/20 16:26 69 99 11/14/20 16:21 69 98 11/14/20 16:17 66 142/92 11/14/20 16:16 67 99 11/14/20 16:11 69 98 11/14/20 16:06 67 99 11/14/20 16:01 69 99 11/14/20 15:58 68 150/93 11/14/20 15:56 74 99 11/14/20 15:51 72 99 11/14/20 15:46 69 99 11/14/20 15:41 71 99 11/14/20 15:38 71 156/99 11/14/20 15:36 70 99 11/14/20 15:31 69 99 11/14/20 15:27 77 92 11/14/20 15:26 81 98 11/14/20 15:21 75 99 11/14/20 15:19 70 159/96 11/14/20 15:17 97.6 F 72 18 177/91 99 11/14/20 15:16 74 98 11/14/20 15:11 86 99 11/14/20 15:06 88 92 11/14/20 15:01 106 H 97 11/14/20 14:59 84 91 11/14/20 14:57 76 165/100 11/14/20 14:56 91 H 97 11/14/20 14:51 97 H 87 11/14/20 14:46 77 99 11/14/20 14:41 86 99 11/14/20 14:37 81 143/78 11/14/20 14:36 78 96 11/14/20 14:31 83 98 11/14/20 14:26 86 98 11/14/20 14:21 83 98 11/14/20 14:17 80 130/70 11/14/20 14:16 87 97 11/14/20 14:11 85 98 11/14/20 14:06 87 97 11/14/20 14:01 77 99 11/14/20 13:57 82 132/65 11/14/20 13:56 78 98 11/14/20 13:51 81 98 11/14/20 13:46 79 97 11/14/20 13:41 84 99 11/14/20 13:37 79 143/82 11/14/20 13:36 77 98 11/14/20 13:31 79 98 11/14/20 13:26 87 99 11/14/20 13:21 82 99 11/14/20 13:17 81 146/85 11/14/20 13:16 81 99 11/14/20 13:11 81 99 11/14/20 13:06 81 99 11/14/20 13:01 74 98 11/14/20 12:57 85 133/73 11/14/20 12:56 83 97 11/14/20 12:51 94 H 99 11/14/20 12:46 78 99 11/14/20 12:41 81 99 11/14/20 12:37 77 130/65 11/14/20 12:36 78 99 11/14/20 12:31 77 99 11/14/20 12:26 80 99 11/14/20 12:21 83 99 11/14/20 12:17 86 139/73 11/14/20 12:16 82 99 11/14/20 12:11 82 99 11/14/20 12:06 84 99 11/14/20 12:01 88 99 11/14/20 11:57 90 146/95 11/14/20 11:56 99 H 98 11/14/20 11:51 95 H 98 11/14/20 11:46 90 98 11/14/20 11:42 98.2 F 93 H 16 99 11/14/20 11:41 87 98 11/14/20 11:36 106 H 98 11/14/20 11:31 83 97 11/14/20 11:26 84 97 11/14/20 11:21 85 97 11/14/20 11:16 84 97 11/14/20 11:11 82 98 11/14/20 11:07 83 131/71 11/14/20 11:06 81 98 11/14/20 11:01 83 98 11/14/20 10:56 83 98 11/14/20 10:51 84 98 11/14/20 10:46 85 98 11/14/20 10:41 85 98 11/14/20 10:40 190/113 11/14/20 10:37 86 143/72 11/14/20 10:36 87 98 11/14/20 10:31 85 98 11/14/20 10:26 87 97 11/14/20 10:24 81 148/79 11/14/20 10:21 86 96 11/14/20 10:16 80 98 11/14/20 10:11 86 98 11/14/20 10:08 100 H 93 11/14/20 10:07 104 H 191/113 11/14/20 10:06 113 H 98 11/14/20 10:01 81 100 11/14/20 09:56 81 98 11/14/20 09:51 88 170/90 99 11/14/20 09:48 80 151/84 11/14/20 09:46 96 H 97 11/14/20 09:41 80 98 11/14/20 09:37 78 170/99 11/14/20 09:36 75 99 11/14/20 09:31 72 99 11/14/20 09:26 69 99 11/14/20 09:21 74 98 11/14/20 09:16 73 98 11/14/20 09:11 75 98 11/14/20 09:07 76 155/92 11/14/20 09:06 76 98 11/14/20 09:01 76 98 11/14/20 08:56 75 98 11/14/20 08:51 77 98 11/14/20 08:46 77 99 11/14/20 08:41 72 98 11/14/20 08:37 79 160/89 11/14/20 08:36 75 98 Intake and Output 11/14/20 11/15/20 11/15/20 23:59 07:59 15:59 Intake Total 1305.567 500 Output Total 400 450 Balance 905.567 50 Intake: IV 1305.567 500 Lactated Ringers 1,000 ml 237.5 @ 125 mls/hr IV DIRECT MILLER Rx#:[id number] MAGNESIUM SULFATE 40GM/ 1062.500 1000ML 40 gm In 1,000 ml @ 2 GM/HR 50 mls/hr IV DIRECT MILLER Rx#:[id number] PITOCin/NS 30 UNIT/500ML 5.567 30 units In 500 ml @ 2 mls/hr IV TITR MILLER Rx#: [id number] Output: Urine 400 450 Indwelling Catheter 400 400 Other: Total, Output Amount 100 100 - Exam Breasts: Present: normal Cardiovascular: Present: Regular rate Lungs: Present: Normal air movement Abdomen: Present: normal appearance, soft Vulva: both: normal Uterus: Present: normal, firm, fundal height below umbilicus Extremities: Present: normal Deep Tendon Reflex Grade: Normal +2 Incision: Present: normal, dry, dressed - Labs Labs: Abnormal lab results 11/14/20 11/14/20 11/14/20 Range/Units 14:08 15:25 21:26 Magnesium 6.60 H 6.60 H 6.90 H (1.7-2.3) mg/dL 11/15/20 Range/Units 03:30 Magnesium 6.40 H (1.7-2.3) mg/dL
[2020-11-15] MEDS: PRENATAL VIT27-FE FUMARATE-FOLIC ACID VIT TAB PO SCH (09:29)
--- NOTE | 2020-11-15 09:30 | Post Anesthesia Evaluation ---
- Post Anesthesia Evaluation Patient Participated: Yes Airway Patent: Yes Stable Respiratory Function: Yes Nausea/Vomiting: No Temp > 96.8F: Yes Pain Manageable: Yes Adequeate Hydration: Yes Anesthesia Complications: No Block Receding Appropriately: Yes
--- NOTE | 2020-11-15 10:35 | Ultrasound Report ---
ULTRASOUND OBSTETRIC LIMITED ULTRASOUND BIOPHYSICAL PROFILE INDICATION / CLINICAL INFORMATION: BPP with doppler flow study. Clinical Gestational Age (GA) in weeks, days: 33, 1 TECHNIQUE: Transabdominal. COMPARISON: None available. FINDINGS: BREATHING MOVEMENT = 2 GROSS BODY MOVEMENT = 2 TONE = 2 QUALITATIVE AMNIOTIC FLUID VOLUME = 2 TOTAL BIOPHYSICAL SCORE = 8/8 HEART RATE (beats per minute): 148 AMNIOTIC FLUID INDEX (cm) = 10.1 (normal = 7-24 cm) PRESENTATION: Cephalic. ADDITIONAL FINDINGS: None. IMPRESSION: 1. Biophysical Score = 8/8 Signer Name: Kirk Jacobson DO Signed: 11/13/2020 9:01 AM Workstation Name: [id number]
[2020-11-15] MEDS: HYDROcodone/ACETAMINOPHEN 5-325 MG TAB PO PRN (14:14)
[2020-11-15 17:12] LABS: Hematocrit 34.1 % (30.3-42.9); Hemoglobin 11.7 gm/dl (10.1-14.3)
[2020-11-15] MEDS: KETOROLAC 30 MG/1 ML INJ IV PRN (18:14)
[2020-11-16] MEDS: KETOROLAC 30 MG/1 ML INJ IV PRN (02:16)
[2020-11-16] MEDS: HYDROcodone/ACETAMINOPHEN 5-325 MG TAB PO PRN ×3 (03:25→22:24)
[2020-11-16] MEDS: ONDANSETRON 4 MG/2 ML INJ IV PRN (03:43)
[2020-11-16] MEDS ORDERED: TETANUS,DIPH,PERTUSS(ACELL) VACCINE 0.5 ML SYRINGE IM ONE (06:00)
[2020-11-16] MEDS: IBUPROFEN 800 MG TAB PO PRN ×2 (06:36→12:47)
[2020-11-16] MEDS: PRENATAL VIT27-FE FUMARATE-FOLIC ACID VIT TAB PO SCH (09:04)
--- NOTE | 2020-11-16 09:35 | Progress Note ---
Assessment and Plan A: 20 y.o. s/p primary , POD #1. S/p magnesium infusion d/t pre elcampsia. P: Continue with post op care. Encourage ambulation. Advance diet as tolerated. Anticipate discharge home on 11/17/2020. Subjective - Subjective Date of service: 11/16/20 (Pt states some soreness in her abdomen.) Principal diagnosis: postop day 1 s/p primary c/s; pre-e and COVID + Patient reports: appetite normal, voiding normally, pain well controlled, flatus, ambulating normally [place]: doing well, in NICU Objective - Vital Signs Latest vital signs: Vital Signs Temp Pulse Resp BP BP Pulse Ox Pulse Ox 11/16/20 09:05 71 131/85 11/16/20 06:36 18 11/16/20 05:54 98.0 F 100 H 18 155/100 97 11/16/20 03:25 19 11/16/20 02:40 99 11/16/20 02:16 18 11/16/20 02:03 85 97 11/16/20 01:58 85 99 11/16/20 01:53 87 99 11/16/20 01:48 68 98 11/16/20 01:44 98.0 F 67 18 141/79 141/79 98 11/16/20 01:43 65 98 11/16/20 01:38 68 98 11/16/20 01:33 67 98 11/16/20 01:28 66 98 11/16/20 01:23 71 98 11/16/20 01:18 69 99 11/16/20 01:13 68 99 11/16/20 01:08 69 98 11/16/20 01:03 73 98 11/16/20 00:58 67 99 11/16/20 00:53 68 98 11/16/20 00:48 73 98 11/16/20 00:44 98.3 F 71 16 136/77 136/77 98 11/16/20 00:43 70 98 11/16/20 00:38 77 97 11/16/20 00:33 79 97 11/16/20 00:28 78 97 11/16/20 00:23 82 97 11/16/20 00:18 80 97 11/16/20 00:13 79 98 11/16/20 00:08 69 98 11/16/20 00:03 77 98 11/15/20 23:58 70 99 11/15/20 23:53 71 98 11/15/20 23:48 74 98 11/15/20 23:44 98.4 F 72 18 124/73 124/73 98 11/15/20 23:43 78 97 11/15/20 23:38 74 98 11/15/20 23:33 74 98 11/15/20 23:28 73 97 11/15/20 23:23 71 97 11/15/20 23:18 74 98 11/15/20 23:13 74 98 11/15/20 23:08 70 98 11/15/20 23:03 69 98 11/15/20 22:58 66 99 11/15/20 22:53 74 99 11/15/20 22:48 67 99 11/15/20 22:44 98.4 F 64 18 140/80 140/80 99 11/15/20 22:43 64 99 11/15/20 22:38 65 100 11/15/20 22:33 80 100 11/15/20 22:28 66 100 11/15/20 22:23 81 99 11/15/20 22:18 76 99 11/15/20 22:13 74 99 11/15/20 22:08 73 99 11/15/20 22:03 71 99 11/15/20 21:58 73 98 11/15/20 21:56 63 153/89 11/15/20 21:53 64 100 11/15/20 21:52 63 153/89 11/15/20 21:50 70 172/112 11/15/20 21:48 70 100 11/15/20 21:44 71 163/107 11/15/20 21:43 73 99 11/15/20 21:38 66 100 05 21:33 68 99 05 21:28 60 99 05 21:23 65 100 11/15/20 21:18 68 100 05 21:13 66 99 05 21:08 70 99 05 21:03 70 99 05 20:58 69 99 0521 20:53 68 98 0521 20:48 66 100 0521 20:45 61 158/98 11/15/20 20:43 69 99 05 20:38 58 L 98 11/15/20 20:33 57 L 99 11/15/20 20:28 61 100 11/15/20 20:23 65 98 11/15/20 20:18 72 99 11/15/20 20:13 70 98 11/15/20 20:08 69 99 11/15/20 20:03 64 99 11/15/20 19:58 62 98 11/15/20 19:53 72 98 11/15/20 19:48 64 98 11/15/20 19:44 98.4 F 68 18 118/72 118/72 99 99 11/15/20 19:43 61 98 11/15/20 19:38 68 98 11/15/20 19:33 64 98 11/15/20 19:28 68 97 11/15/20 19:23 63 97 11/15/20 19:18 74 97 11/15/20 19:13 65 98 11/15/20 19:08 78 97 11/15/20 19:03 65 97 11/15/20 18:58 73 97 11/15/20 18:53 66 98 11/15/20 18:48 75 98 11/15/20 18:44 66 121/76 11/15/20 18:43 67 98 11/15/20 18:38 65 97 11/15/20 18:33 69 97 11/15/20 18:28 65 97 11/15/20 18:23 72 100 11/15/20 18:18 68 99 11/15/20 18:13 73 98 11/15/20 18:11 98.2 F 78 14 130/81 100 11/15/20 18:06 73 130/81 11/15/20 16:44 68 132/82 11/15/20 16:07 75 98 05 16:02 79 97 11/15/20 15:57 71 98 11/15/20 15:52 71 98 05 15:47 69 98 0521 15:44 68 121/72 05 15:42 73 98 05 15:37 69 98 05 15:32 70 98 05 15:27 68 98 05/21 15:22 80 98 11/15/20 15:17 68 98 11/15/20 15:12 70 98 11/15/20 15:07 74 99 11/15/20 15:02 70 99 11/15/20 14:57 71 99 11/15/20 14:52 69 98 11/15/20 14:47 71 98 11/15/20 14:44 71 144/92 11/15/20 14:42 73 98 11/15/20 14:37 79 98 11/15/20 14:32 82 97 11/15/20 14:27 80 100 11/15/20 14:22 83 98 11/15/20 14:17 77 100 11/15/20 14:12 79 99 11/15/20 14:10 98.1 F 82 14 140/91 140/91 99 11/15/20 14:07 82 99 11/15/20 14:02 77 98 11/15/20 13:57 75 97 11/15/20 13:52 75 98 11/15/20 13:47 80 98 11/15/20 13:44 78 142/89 11/15/20 13:42 79 98 11/15/20 13:37 81 98 11/15/20 13:32 69 98 11/15/20 13:27 81 97 11/15/20 13:22 73 96 11/15/20 13:17 73 97 11/15/20 13:12 74 98 11/15/20 13:07 89 98 11/15/20 13:02 81 98 11/15/20 12:57 86 98 11/15/20 12:52 83 98 11/15/20 12:47 80 98 11/15/20 12:44 74 138/84 11/15/20 12:42 71 97 11/15/20 12:37 71 97 11/15/20 12:32 77 97 11/15/20 12:27 85 98 11/15/20 12:22 83 99 11/15/20 12:17 85 97 11/15/20 12:13 71 88 11/15/20 12:12 86 99 11/15/20 12:07 75 97 11/15/20 12:02 82 99 11/15/20 11:57 86 98 11/15/20 11:52 82 99 11/15/20 11:47 87 99 11/15/20 11:44 83 148/87 11/15/20 11:42 85 98 11/15/20 11:37 89 99 11/15/20 11:32 92 H 99 11/15/20 11:29 85 143/75 11/15/20 11:27 86 98 11/15/20 11:22 85 97 11/15/20 11:17 88 97 11/15/20 11:14 80 139/73 11/15/20 11:12 82 97 11/15/20 11:07 87 97 11/15/20 11:02 87 97 11/15/20 10:59 89 143/75 11/15/20 10:57 91 H 98 11/15/20 10:52 93 H 98 11/15/20 10:47 90 96 11/15/20 10:44 86 137/67 11/15/20 10:42 83 97 11/15/20 10:37 79 96 11/15/20 10:32 78 97 11/15/20 10:29 81 132/73 11/15/20 10:27 81 97 11/15/20 10:22 93 H 98 11/15/20 10:17 94 H 98 11/15/20 10:14 93 H 137/89 11/15/20 10:12 98 H 98 11/15/20 10:07 97 H 98 11/15/20 10:02 89 97 11/15/20 09:59 91 H 145/93 11/15/20 09:57 92 H 98 11/15/20 09:52 94 H 98 11/15/20 09:47 91 H 98 11/15/20 09:44 90 152/100 11/15/20 09:42 94 H 99 11/15/20 09:37 90 99 Intake and Output 11/15/20 11/16/20 11/16/20 22:59 06:59 14:59 Intake Total 586.667 200 Output Total 1999 1300 Balance -1413.333 -1100 Intake: IV 586.667 MAGNESIUM SULFATE 40GM/ 586.667 1000ML 40 gm In 1,000 ml @ 1 GM/HR 25 mls/hr IV DIRECT MILLER Rx#:[id number] Oral 200 Output: Urine 1999 1300 Indwelling Catheter 900 500 Uretheral ([place]) 1100 800 Other: Total, Intake Amount 200 Total, Output Amount 600 500 - Exam Narrative Exam: Pt denies spots before her eyes, chest pain, shortness of breath, and upper abdominal pain. States that she has some RYDER's and blurred vision. Blood pressure ranges have since 0600am have been 130's-150's/70-100's. Pt encouraged to get out of bed and walk around. Will continue to closely monitor blood pressures and continue Labetalol 200mg BID. Breasts: Present: deferred Cardiovascular: Present: Normal S1, Normal S2 Lungs: Present: Clear to auscultation Abdomen: Present: normal appearance, soft Vulva: both: normal Uterus: Present: normal, firm Extremities: Present: normal Deep Tendon Reflex Grade: Normal +2 Incision: Present: normal, dry, intact, other (No s/sx of infection and no drainage noted. ) - Labs Labs: Abnormal lab results 11/15/20 11/15/20 11/15/20 Range/Units 09:17 16:54 23:31 Magnesium 6.00 H 6.90 H 7.00 H (1.7-2.3) mg/dL 11/16/20 Range/Units 07:20 Magnesium 4.70 H (1.7-2.3) mg/dL
[2020-11-17] MEDS: IBUPROFEN 800 MG TAB PO PRN ×2 (01:07→21:52)
--- NOTE | 2020-11-17 01:44 | Event Note ---
Date: 11/17/20 BP noted. S/w RN who thinks elevated BP associated with pain. Gabapentin order given. Instrd RN to rechk BP now and call provider if still elevated.
[2020-11-17] MEDS ORDERED: GABAPENTIN 300 MG CAP PO ONE (02:41)
[2020-11-17] MEDS: hydrALAZINE 20 MG/1 ML INJ IV PRN (08:41)
--- NOTE | 2020-11-17 08:44 | Progress Note ---
Assessment and Plan 20 yo s/p day 2, sitting in bed, c/o incisional pain 7/10 and burning, discussed relief measures. Lochia light, fundus firm and midline, incision clean, dry, and [employer], edges approximated. Discussed S&S of infx and care of incision. B/Ps 150-170/100s, tx'd w/ hydralazine, will reassess. Labetalol BID increased to 300MG for B/P maintenance. Afebrile. Denies H/A, blurred vision, epigastric pain. reviewed pain medications available with RN - pt should be medicated as ordered and contact provider if pain expectations are not being met. - Patient Problems (1) Pre-eclampsia Current Visit: Yes Status: Acute Qualifiers: Trimester: third trimester Qualified Code(s): O14.93 - Unspecified pre- eclampsia, third trimester (2) COVID-19 Current Visit: Yes Status: Acute Plan to address problem: Continue isolation monitor pulse ox encouraged ISS (3) delivery delivered Current Visit: Yes Status: Acute Plan to address problem: continue postop pathway Advance activity as tolerated Subjective - Subjective Date of service: 11/17/20 Principal diagnosis: postop day 3 s/p primary c/s; pre-e and COVID + Interval history: EDC Calculations by LMP: 12/31/2020 Past History : 4 Term Births: 0 Premature Births: 0 Living Children: 0 Para: 0 Mult. Births: 0 Prev : 0 Aborta: 3 Elect. Ab: 0 Spont. Ab: 2 Ectopics: 1 # 1 Delivery date: 2014 Weeks Gestation: 5 Delivery type: SAB Comments: No D&C # 2 Delivery date: 2016 Delivery type: SAB Comments: No D&C # 3 Delivery date: 10/2019 Delivery type: ectopic Delivery location: [facility] Comments: [facility] Left salpingectomy Past Medical History: Asthma Past Surgical History: Tonsillectomy Lsc Left salpingectomy Family History Summary: Other Family Member - Has No Family History of Ovarvian Cancer - Entered On: 08/01/2020 Other Family Member - Has No Family History of Breast Cancer - Entered On: 08/01/2020 Other Family Member - Has Family History Colon Cancer - Entered On: 08/01/2020 Social History: Marital Status: Single Children: 0 Occupation: Unemployed Smoking History: Patient is a former smoker. 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 Infection History Hx of STD: none HIV Risk Eval: no Hepatitis B Risk Eval: low risk Partner hx. of genital herpes: no Genetic History Congenital Heart Defect: Mom: no Dad: no Juju Disease: Mom: no Dad: no Thalassemia Mom: no Dad: no Neural Tube Defect Mom: no Dad: no Down's Syndrome Mom: no Dad: no Luis-Sachs Mom: no Dad: no Sickle Cell Disease/Trait Mom: no Dad: no Hemophilia Mom: no Dad: no Muscular Dystrophy Mom: no Dad: no Cystic Fibrosis Mom: no Dad: no Amanda Chorea Mom: no Dad: no Mental Retardation Mom: no Dad: no Fragile X Mom: no Dad: no Other Genetic/Chromosomal Disorder Mom: no Dad: no Child w/other defect Mom: no Dad: no Enviromental Exposures Xray Exposure: no Medication, drug, or alcohol use since LMP: no Chemical/Other Exposure: no Exposure to Cat Liter: no Active Medications (reviewed today): None Current Allergies (reviewed today): No known allergies Patient reports: appetite normal, voiding normally, flatus, pain poorly controlled, ambulating normally [place]: in NICU Objective - Vital Signs Latest vital signs: Vital Signs Temp Pulse Resp BP BP Pulse Ox Pulse Ox 11/17/20 08:41 66 178/109 11/17/20 08:00 99.0 F 66 19 178/109 98 11/17/20 02:31 98.5 F 68 18 181/112 99 11/17/20 02:07 18 11/17/20 01:07 18 11/16/20 22:24 18 11/16/20 22:22 73 179/92 11/16/20 20:00 98 11/16/20 19:31 98.9 F 81 18 139/88 98 11/16/20 17:25 98.0 F 70 17 137/86 98 11/16/20 12:00 98.0 F 67 17 135/88 98 11/16/20 09:05 71 131/85 - Exam Breasts: Present: normal Lungs: Present: Normal air movement Abdomen: Present: normal appearance, soft Uterus: Present: normal, firm Extremities: Present: normal
[2020-11-17] MEDS: PRENATAL VIT27-FE FUMARATE-FOLIC ACID VIT TAB PO SCH (10:00)
[2020-11-17] MEDS: HYDROcodone/ACETAMINOPHEN 5-325 MG TAB PO PRN ×2 (10:01→17:42)
[2020-11-18] MEDS: HYDROcodone/ACETAMINOPHEN 5-325 MG TAB PO PRN ×2 (09:05→16:37)
--- NOTE | 2020-11-18 10:49 | Progress Note ---
Assessment and Plan - Patient Problems (1) COVID-19 Current Visit: Yes Status: Acute Plan to address problem: -no sx at this time -con't expectant management and contact isolation (2) delivery delivered Current Visit: Yes Status: Acute Plan to address problem: -routine post op care -stable from post op standpoint (3) Hypertension in , pre-eclampsia, severe, antepartum Current Visit: Yes Status: Acute Plan to address problem: -bp meds adjusted this am -monitor for balance of this day and consider d/c in the am if bps better controlled. -plan of care d/w pt and questions were addressed and answered. She desires d/c home but expressed understanding and agrees with plan of care. Subjective - Subjective Date of service: 11/18/20 Principal diagnosis: postop day 4 s/p primary c/s; pre-e and COVID + Interval history: Pt sitting in bed smiling this am. States she just got pain meds and is feeling well today. She denies any loss of taste or smell and states no sx of covid at this time. She was advised that her bp meds were increased starting with the am does to Labetalol 300mg bid by Dr. Loco and we will need to monitor at this time. I stressed to pt optimal blood pressure control prior to d/c with bps in the mild ranges but not severe. She expressed understanding but does desire d/c home. Patient reports: appetite normal, voiding normally, pain well controlled, ambulating normally, no dizzy ambulation, no nauseated : doing well Objective - Vital Signs Latest vital signs: Vital Signs Temp Pulse Resp BP BP Pulse Ox Pulse Ox 11/18/20 08:00 98.5 F 66 18 144/89 98 11/18/20 05:36 98.9 F 61 18 151/87 98 11/17/20 22:50 100 11/17/20 21:56 98.4 F 77 18 141/91 141/91 100 11/17/20 21:52 18 100 11/17/20 19:30 18 99 11/17/20 14:00 98 F 80 18 142/91 98 Intake and Output 11/17/20 11/18/20 11/18/20 22:59 06:59 14:59 Intake Total 200 200 Balance 200 200 Intake: Oral 200 200 Other: Total, Intake Amount 200 200 # Voids Void 3 2 Weight 78 kg Patient Weight 11/19/20 06:59 Weight 78 kg - Exam Breasts: Present: deferred Cardiovascular: Present: Normal S1, Normal S2 Lungs: Present: Clear to auscultation, Normal air movement Abdomen: Present: normal appearance, soft, normal bowel sounds. Absent: distention, tenderness, guarding Uterus: Present: normal, firm, fundal height below umbilicus. Absent: tenderness Extremities: Present: normal. Absent: tenderness, edema Deep Tendon Reflex Grade: Normal +2 Incision: Present: normal, dry, intact (open to air no s/sx of infection noted.)
[2020-11-18] MEDS: PRENATAL VIT27-FE FUMARATE-FOLIC ACID VIT TAB PO SCH (12:29)
[2020-11-18] MEDS: IBUPROFEN 800 MG TAB PO PRN ×2 (12:29→22:38)
[2020-11-19] MEDS: HYDROcodone/ACETAMINOPHEN 5-325 MG TAB PO PRN ×2 (01:54→10:19)
[2020-11-19] MEDS: IBUPROFEN 800 MG TAB PO PRN (05:06)
[2020-11-19] MEDS: PRENATAL VIT27-FE FUMARATE-FOLIC ACID VIT TAB PO SCH (10:11)
--- NOTE | 2020-11-19 12:28 | Event Note ---
Date: 11/19/20 Received a call from the RN that patient's blood pressure was 170's/90's. I discussed with the patient that she can not go home today and we will be adding another blood pressure medication to see if this better controls her blood pressure. She verbalized understanding and agrees to this plan. She is otherwise doing well. She denies RYDER, blurred vision, spots before her eyes, chest pain, shortness of breath, and upper abdominal pain. Her incision is open to air, intact with no s/sx of infection, and no drainage noted. She has no edema, her lung sounds are clear, and there are regular S1S2 heart rate sounds. Procardia 30 mg added to blood pressure regime at this time. RN taking care of patient aware. Will continue to monitor blood pressure. If blood pressures decrease and remain stable, will send home tomorrow on 11/20.
[2020-11-19] MEDS ORDERED: NIFEdipine XL 30 MG TAB PO SCH (13:00)
[2020-11-19] MEDS ORDERED: hydrALAZINE 20 MG/1 ML INJ IV PRN (17:52)
[2020-11-19] MEDS: IBUPROFEN 800 MG TAB PO SCH (20:16)
[2020-11-20] MEDS: HYDROcodone/ACETAMINOPHEN 5-325 MG TAB PO PRN ×2 (00:21→10:13)
[2020-11-20] MEDS: IBUPROFEN 800 MG TAB PO SCH (04:49)
--- NOTE | 2020-11-20 09:06 | Discharge Summary ---
Providers - Providers Date of Admission: 11/11/20 14:24 Date of discharge: 11/20/20 (Pt in good condition for discharge home.) Attending physician: SHERIF COOPER 11/11/20 13:51 Consult to Physician [CONS] Routine Comment: Consulting Provider: CASEY CANO Physician Instructions: Reason For Exam: IUGR, elevated b/p 11/13/20 08:09 Consult to Physician [CONS] Routine Comment: Consulting Provider: DANIELE PUGH Physician Instructions: Reason For Exam: PreE w SF and IUGR , delivery required at 34w Primary care physician: SHERIF COOPER Hospitalization Reason for admission: observation, other (Obs for IUGR) Delivery: Procedure: primary low transverse Episiotomy: none Laceration: none Incision: normal, dry, intact Other procedures: none complications: other (Elevated blood pressures, pre eclampsia, on mag) Discharge diagnosis: delivery baby: female Pertinent studies: Pt denies RYDER, blurred vision, shortness of breath, chest pain, spots before her eyes, and upper abdominal pain. We discussed should any of these symptoms occur she is to call the rn observation provider immediately and await further instructions or go to the ER for evaluation. We discussed she should take her blood pressure at least once daily and how to take her blood pressure at home. Explained that she will need to take her blood pressure medication until we tell her its okay not to take the medication. Hospital course: S: Pt doing well. Voiding, ambulating, and passing flatus okay. O: VSS. Blood pressure ranges have been 120-130's/70-90's. Incision open to air, intact, no s/sx of infection and no drainage noted. A: 20 y.o. s/p primary d/t IUGR, pre eclampsia, POD #5. In good condition and can be discharged home. P: Discharge home with instructions. To schedule an incision check and blood pressure check in 1 week in the office. Condition at discharge: Good Disposition: 01 HOME / SELF CARE / HOMELESS Plan - Discharge Medications Prescriptions: Docusate Sodium [Colace] 100 mg PO BID PRN #60 capsule PRN Reason: Constipation Labetalol HCl [Labetalol 300mg TAB] 300 mg PO BID #90 tablet Ibuprofen [Motrin 800 MG tab] 800 mg PO Q8HR PRN #30 tablet PRN Reason: Pain, Moderate (4-6) oxyCODONE /ACETAMINOPHEN [Percocet 5/325] 1 tab PO Q4HR #30 tab NIFEdipine XL [Procardia Xl] 30 mg PO QDAY #30 tablet - Provider Discharge Summary Activity: routine, no sex for 6 weeks, no heavy lifting 4 weeks, no strenuous exercise Diet: routine Instructions: routine Additional instructions: [] Smoking cessation referral if applicable(refer to patient education folder for contact #) [] Refer to [facility] Booklet Call your doctor immediately for: * Fever > 100.5 * Heavy vaginal bleeding ( >1 pad per hour) * Severe persistent headache * Shortness of breath * Reddened, hot, painful area to leg or breast * Drainage or odor from incision. * Keep incision clean and dry at all times and follow doctor's instructions regarding bathing/showering Congratulations on the of your baby girl! Thank you for allowing us to take care of you! Please schedule your incision and blood pressure check in the office in 1 week. Should you have any questions or concerns after discharge, please do not hesitate to call the office at [phone]. Taking your blood pressure at home Please take your blood pressure at least once daily Take your blood pressure medication as written by your provider Taking your blood pressure with a wrist monitor: 1. Put the blood pressure cuff on your wrist. Make sure it is not on the bone of your wrist. 2. Sit with your legs uncrossed and feet flat on the ground. 3. Wait 5-10 minutes before taking your blood pressure. 4. If you wrist monitor requires you to put your arm across your chest: After 5-10 minutes, put your arm across your chest like you are about to say the pledge of allegiance. Taking your blood pressure with a cuff monitor: 1. Put the blood pressure cuff on your arm. 2. Sit with your legs uncrossed and feet flat on the ground. Make sure your arm is relaxed on a table or your kitchen table and bent at a 90 degree angle. 3. After 5-10 minutes push the button to take your blood pressure. While you are at home, if you experience a headache, blurred vision, spots before your eyes, chest pain, shortness of breath, and pain in your upper belly, and/or your blood pressure is 150/90 or greater please call the on-call provider immediately. - Follow up plan Follow up: SHERIF COOPER MD [Primary Care Provider] - 7 Days Forms: [facility] Discharge Summary
[2020-11-20 09:48] VITALS: BP 121/83
[2020-11-20] MEDS: PRENATAL VIT27-FE FUMARATE-FOLIC ACID VIT TAB PO SCH (10:13)
== END 2020-11-20 11:50 | disposition home or self-care (01) | DRG 765 ==
LOC: TRG 13:38 → APU 13:39 → TRG 14:05 → LD 14:24 → OB 11-16 03:02
PROVIDERS: ADMIT Obstetrics & Gynecology; ATTEND Obstetrics & Gynecology
PROC: 10D00Z1 Extraction of Products of Conception, Low, Open Approach (ICD-10-PCS; principal; 2020-11-15)
PROC: 0U7C7ZZ Dilation of Cervix, Via Natural or Artificial Opening (ICD-10-PCS; 2020-11-15)
PROC: 3E0P7VZ Introduction of Hormone into Female Reproductive, Via Natural or Artificial Opening (ICD-10-PCS; 2020-11-15)
PROC: 3E0234Z Introduction of Serum, Toxoid and Vaccine into Muscle, Percutaneous Approach (ICD-10-PCS; 2020-11-16)
DX: O36.5930 Maternal care for other known or suspected poor fetal growth, third trimester, not applicable or unspecified (principal); U07.1 COVID-19; O60.14X0 Preterm labor third trimester with preterm delivery third trimester, not applicable or unspecified; Z37.0 Single live birth; Z3A.32 32 weeks gestation of pregnancy; J45.909 Unspecified asthma, uncomplicated; O62.0 Primary inadequate contractions; O76 Abnormality in fetal heart rate and rhythm complicating labor and delivery; O99.824 Streptococcus B carrier state complicating childbirth; O13.4 Gestational [pregnancy-induced] hypertension without significant proteinuria, complicating childbirth; O14.14 Severe pre-eclampsia complicating childbirth; O98.52 Other viral diseases complicating childbirth; O99.52 Diseases of the respiratory system complicating childbirth; Z87.891 Personal history of nicotine dependence; Z56.0 Unemployment, unspecified; Z90.721 Acquired absence of ovaries, unilateral; Z23 Encounter for immunization
CPT/HCPCS: 36415; 59200; 76815; 76819; 76820; 82565; 82570; 83735; 84156; 84450; 84460; 84550; 85014; 85018; 85025; 85027; 86850; 86900; 86901; 87116; 88307; G0378; J0290; J0360; J0595; J0690; J0702; J1885; J2270; J2274; J2405; J2590; J2765; J3475; J3490; J7120; U0003